=== PATIENT | female | born 1995 | race Caucasian/White ===

== ENCOUNTER → 2017-03-29 | Outpatient (CLI) | payer OTHER ==
--- NOTE | 2017-03-30 07:43 | US ---
EXAMINATION TYPE: US pelvic complete DATE OF EXAM: 03/29/2017 COMPARISON: Previous study dated 03/04/2015. CLINICAL HISTORY: R10.2 Pelvic pain, N80.9 Endometriosis. TECHNIQUE: Transabdominal (TA) Date of LMP: 03/14/2017 EXAM MEASUREMENTS: Uterus: 7.9 x 3.7 x 4.7 cm Endometrial Stripe: 0.6 cm Right Ovary: 3.0 x 2.1 x 1.8 cm Left Ovary: 3.2 x 2.4 x 2.5 cm 1. Uterus: Anteverted wnl 2. Endometrium: wnl 3. Right Ovary: wnl 4. Left Ovary: wnl 5. Bilateral Adnexa: wnl 6. Posterior cul-de-sac: small amount of free fluid IMPRESSION: NORMAL PELVIC ULTRASOUND.
== END | disposition home or self-care (01) ==
LOC: RADUSWWP 15:47
PROVIDERS: ATTEND Family Medicine
DX: R10.2 Pelvic and perineal pain (principal); N80.9 Endometriosis, unspecified
CPT/HCPCS: 76856

== ENCOUNTER → 2017-06-08 | Outpatient (CLI) | payer OTHER ==
--- NOTE | 2017-06-08 10:12 | CT ---
EXAMINATION TYPE: CT abdomen pelvis w con DATE OF EXAM: 06/08/2017 HISTORY: RUQ pain, mid abd and RLQ pain per patient. Right upper quadrant pain per order. CT DLP: 332.7mGycm Automated Exposure Control for Dose Reduction was Utilized. CONTRAST: CT scan of the abdomen and pelvis is performed with IV Contrast, patient injected with 100 mL of Omni paque 300. COMPARISON: CT abdomen pelvis April 30, 2015 FINDINGS: LUNG BASES: No significant abnormality is appreciated. LIVER/GB: No significant abnormality is appreciated. PANCREAS: No significant abnormality is seen. SPLEEN: No significant abnormality is seen. ADRENALS: No significant abnormality is seen. KIDNEYS: No significant abnormality is seen. BOWEL: No suspicious small or large bowel dilatation is seen. Appendix is difficult to visualize wit h certainty as patient has virtually no intra-abdominal fat but there is no convincing evidence of in flammatory change at base of cecum. UTERUS/ADNEXA: Small amount free fluid is seen in pelvic cul-de-sac near axial image 66. There is tub ular shaped air filled structure in the vaginal canal consistent with tampon. LYMPH NODES: No greater than 1cm abdominal or pelvic lymph nodes are appreciated. OSSEOUS STRUCTURES: There is persistent slight dextroconvex scoliotic curvature in the lumbar spine. OTHER: No significant additional abnormality is seen. IMPRESSION: Small amount of free fluid in pelvic cul-de-sac, nonspecific finding otherwise no signifi cant acute finding is seen to account for patient's clinical symptoms.
== END ==
LOC: RADCTMAIN 09:13
PROVIDERS: ATTEND Surgery
DX: R10.11 Right upper quadrant pain (principal)
CPT/HCPCS: 74177; Q9967

== ENCOUNTER → 2017-10-31 | Outpatient (CLI) | payer OTHER ==
--- NOTE | 2017-10-31 08:43 | CT ---
EXAMINATION TYPE: CT chest w con DATE OF EXAM: 10/31/2017 COMPARISON: NONE HISTORY: 22-year-old female with neck mass right side, Viral infection TECHNIQUE: Contiguous axial scanning of the chest after the administration of 100 ml mL of Omnipaque 300. Coronal/sagittal reconstructions performed. CT DLP: 481.40mGycm. Automatic exposure control utilized for a dose reduction. FINDINGS: Heart normal size without pericardial effusion. Aorta normal caliber with conventional arch vessel branching anatomy. Some soft tissue density in the anterior mediastinum most compatible with residual thymic tissue. No thoracic lymphadenopathy. Evaluation of the lungs shows mild to moderate diffuse bronchial wall thickening without consolidatio n or pleural effusion. Visualized upper abdomen shows no gross abnormality. Bones: No osseous destructive process. IMPRESSION: 1. [id number] diffuse bronchial wall thickening. This could represent bronchitis, inflammation from asthma, or atypical pneumonias. 2. Otherwise, no acute pulmonary process.
--- NOTE | 2017-10-31 08:59 | CT ---
EXAMINATION TYPE: CT soft tissue neck w con DATE OF EXAM: 10/31/2017 COMPARISON: NONE HISTORY: Left neck mass TECHNIQUE: Contiguous axial scanning of the performed with IV Contrast, patient injected with 100 ml mL of Omnipaque 300. Delayed images through the kidneys were obtained. Coronal/sagittal reconstructio ns performed. CT DLP: 481.40 mGycm Automated exposure control for dose reduction was used. FINDINGS: Small polyp or mucosal retention cyst posterior right maxillary sinus. Mastoid air cells well pneumat ized. Orbits and globes are intact. Visualized intracranial structures show no gross abnormality. The nasopharynx is clear. Mild bilateral palatine tonsillar hypertrophy. Oropharynx otherwise clear. The epiglottis and prevertebral soft tissues are within normal limits. The glottic and subglottic structures as well as the tracheal column appear clear. Chest reported sep arately. There is a palpable marker present along the lateral aspect of the right upper neck. Just anterior to this, in front of the anterior margin of the sternocleidomastoid, there is a prominent but nonenlarg ed station 2A lymph node measuring 2.7 x 1.0 cm. Additional additional scattered prominent but nonenlarged cervical lymph nodes are demonstrating varun uring up to 9 mm. The thyroid gland, submandibular glands, as well as the bilateral parotid glands appear satisfactory. IMPRESSION: THERE ARE SOME SCATTERED PROMINENT CERVICAL LYMPH NODES. HOWEVER, THESE REMAIN NONENLARGED BY CT SIZE CRITERIA. THE LARGEST IS JUST ANTERIOR TO THE PALPABLE MARKER PLACED ALONG THE LATERAL RIGHT UPPER N ISABEL AND MEASURES 2.7 X 1.0 CM (1.0 CM SHORT AXIS). FINDINGS PROBABLY REACTIVE/POST INFLAMMATORY AND C AN BE FOLLOWED CLINICALLY.
== END | disposition home or self-care (01) ==
LOC: RADCTMAIN 06:45
PROVIDERS: ATTEND Otolaryngology
DX: J98.4 Other disorders of lung (principal); R59.0 Localized enlarged lymph nodes; B34.9 Viral infection, unspecified
CPT/HCPCS: 70491; 71260; Q9967

== ENCOUNTER 2017-11-22 09:10 | Day surgery (SDC) | payer OTHER ==
[2017-11-22 09:20] VITALS: BP 116/59; PULSE 88; RESP 20; TEMP 97.8
--- NOTE | 2017-11-22 11:21 | US ---
EXAMINATION TYPE: US fine needle aspiration of right neck node DATE OF EXAM: 11/22/2017 COMPARISON: CT 10/31/2017 HISTORY: Right neck node, pain. Maximal barrier technique was utilized. After informed consent, skin overlying the lesion was locali zed with ultrasound and the overlying skin prepped and draped. Ultrasound was utilized using sterile technique. Lidocaine was used for local anesthesia. Five passes with a 25-gauge needle were made int o the nodule and aspirated specimen was submitted to cytology. Following the procedure hemostasis ac hieved. No immediate complication. The patient discharged in stable condition. IMPRESSION: STATUS POST ULTRASOUND GUIDED FINE NEEDLE ASPIRATION OF RIGHT NECK NODULE, PATHOLOGY IS P ENDING. THIS PROCEDURE WAS PERFORMED BY THE UNDERSIGNED.
== END 2017-11-22 10:30 | disposition home or self-care (01) ==
LOC: RADPROMAIN 09:10
PROVIDERS: ATTEND Otolaryngology
DX: R22.1 Localized swelling, mass and lump, neck (principal)
CPT/HCPCS: 10022; 76942; 88173; 88305

== ENCOUNTER 2018-05-11 09:07 | Emergency (ER) | payer OTHER ==
[2018-05-11] MEDS ORDERED: MORPHINE SULFATE 2 MG/ML SYRINGE IVP STA ×2 (09:23→10:48)
[2018-05-11] MEDS ORDERED: ONDANSETRON 4 MG/2 ML VIAL IVP STA (09:23)
[2018-05-11] MEDS ORDERED: SODIUM CHLORIDE 0.9% 1,000 ML IV STA (09:23)
--- NOTE | 2018-05-11 09:45 | ED ---
General Adult HPI - General Chief complaint: Abdominal Pain Stated complaint: PELVIC PAIN Source: patient Mode of arrival: ambulatory Limitations: no limitations - History of Present Illness Initial comments: Dictation was produced using [employer] dictation software. please excuse any grammatical, word or spelling errors. Chief Complaint: 22-year-old female witha past medical history presents with lower quadrant abdominal pain 2 days. History of Present Illness:-year-old femalepast medical history presents with lower quadrant abdominal pain 2 days. Patient states she attempted to call her associate professor of education however was instructed to come to the emergency department. She states she has history of ovarian cyst. She does not know what size it was ovarian cyst R. She reports that her pain is to the suprapubic area however worse in the right lower quadrant. Patient has history of cholecystectomy. Denies any fevers. She does complain of nausea however no vomiting. Denies any constitutional symptoms. The ROS documented in this emergency department record has been reviewed and confirmed by me. Those systems with pertinent positive or negative responses have been documented in the HPI. All other systems are other negative and/or noncontributory. - Related Data Home Medications Medication Instructions Recorded Confirmed Ibuprofen [Motrin] 600 mg PO Q8HR PRN 05/11/18 05/11/18 Previous Rx's Medication Instructions Recorded Acetaminophen [Acetaminophen Oral 1,000 mg PO Q8H PRN #20 ml 05/11/18 Soln] Ibuprofen [Motrin] 400 mg PO Q4H PRN #12 tab 05/11/18 Allergies Allergy/AdvReac Type Severity Reaction Status Date / Time Penicillins Allergy Rash/Hives Verified 05/11/18 09:28 hydrocodone bitartrate AdvReac Nausea & Verified 05/11/18 09:28 [From Vicodin] Vomiting Review of Systems ROS Statement: Those systems with pertinent positive or pertinent negative responses have been documented in the HPI. ROS Other: All systems not noted in ROS Statement are negative. Past Medical History Past Medical History: No Reported History Additional Past Medical History / Comment(s): KIDNEY INFECTION, NAUSEA, stomach ulcers History of Any Multi-Drug Resistant Organisms: None Reported Past Surgical History: Cholecystectomy Past Anesthesia/Blood Transfusion Reactions: No Reported Reaction Past Psychological History: Anxiety, Panic Disorder Smoking Status: Never smoker Past Alcohol Use History: Occasional Past Drug Use History: Marijuana - Past Family History Mother Family Medical History: Cancer Additional Family Medical History / Comment(s): LUNG General Exam - General Exam Comments Initial Comments: PHYSICAL EXAM: General Impression: Alert and oriented x3, acute distress secondary to pain HEENT: Normocephalic atraumatic, extra-ocular movements intact, pupils equal and reactive to light bilaterally, mucous membranes moist. Cardiovascular: Heart regular rate and rhythm, S1&S2 audible, no murmurs, rubs or gallops Chest: Lungs clear to auscultation bilaterally, no rhonchi, no wheeze, no rales Abdomen: Bowel sounds present, abdomen soft, tenderness at McBurney's point, positive rebound Musculoskeletal: Pulses present and equal in all extremities, no peripheral edema Motor: Power 5/5 bilaterally, no focal deficits noted Neurological: CN II-XII grossly intact, no focal motor or sensory deficits noted Skin: Intact with no visualized rashes Psych: Normal affect and mood Limitations: no limitations Course Vital Signs 05/11/18 05/11/18 05/11/18 09:12 10:35 11:31 Temperature 98.1 F 97.9 F Pulse Rate 64 75 55 L Respiratory 18 22 16 Rate Blood Pressure 113/70 117/62 91/54 O2 Sat by Pulse 100 99 100 Oximetry Medical Decision Making - Medical Decision Making ED course: 22-year-old female presents with chief complaint of abdominal pain. Vital signs upon arrival are within acceptable limits. Patient is afebrile. Physical examination positive for tenderness at McBurney' s point with rebound tenderness. There is suspicion that patient's symptoms reflect appendicitis. Laboratory evaluation obtained. Metabolic panel is unremarkable. CBC is unremarkable. Cardiac panel is unremarkable. Urinalysis is not consistent with urinary tract infection. Urine is negative. Transvaginal ultrasound was obtained showing small amount of free fluids with a 2.1 cm cyst within the left ovary likely, located cyst. Abdominal CT was obtained to rule out appendicitis. No findings to suggest appendicitis. There is some findings of enteritis. Findings represent ruptured ovarian follicle of the left ovary. There is some secondary findings of enteritis as well. Discussed with patient these findings. She is given prescription for analgesics. Told to follow-up with her associate professor of education upon discharge. - Lab Data Result diagrams: 05/11/18 09:30 05/11/18 09:30 Lab Results 05/11/18 05/11/18 05/11/18 Range/Units 09:30 09:30 09:30 WBC 5.6 (3.8-10.6) k/uL RBC 4.27 (3.80-5.40) m/uL Hgb 12.3 (11.4-16.0) gm/dL Hct 37.5 (34.0-46.0) % MCV 87.7 (80.0-100.0) fL MCH 28.7 (25.0-35.0) pg MCHC 32.8 (31.0-37.0) g/dL RDW 12.4 (11.5-15.5) % Plt Count 258 (150-450) k/uL Neutrophils % 54 % Lymphocytes % 35 % Monocytes % 7 % Eosinophils % 2 % Basophils % 1 % Neutrophils # 3.0 (1.3-7.7) k/uL Lymphocytes # 2.0 (1.0-4.8) k/uL Monocytes # 0.4 (0-1.0) k/uL Eosinophils # 0.1 (0-0.7) k/uL Basophils # 0.0 (0-0.2) k/uL PT (9.0-12.0) sec INR (<1.2) Sodium (137-145) mmol/L Potassium (3.5-5.1) mmol/L Chloride (98-107) mmol/L Carbon Dioxide (22-30) mmol/L Anion Gap mmol/L BUN (7-17) mg/dL Creatinine (0.52-1.04) mg/dL Est GFR (CKD-EPI)AfAm (>60 ml/min/1.73 sqM) Est GFR (CKD-EPI)NonAf (>60 ml/min/1.73 sqM) Glucose (74-99) mg/dL Calcium (8.4-10.2) mg/dL Total Bilirubin (0.2-1.3) mg/dL AST (14-36) U/L ALT (9-52) U/L Alkaline Phosphatase (38-126) U/L Total Protein (6.3-8.2) g/dL Albumin (3.5-5.0) g/dL Lipase (23-300) U/L Urine Color Yellow Urine Appearance Cloudy H (Clear) Urine pH 5.5 (5.0-8.0) Ur Specific [place] 1.023 (1.001-1.035) Urine Protein Trace H (Negative) Urine Glucose (UA) Negative (Negative) Urine Ketones Trace H (Negative) Urine Blood Small H (Negative) Urine Nitrite Negative (Negative) Urine Bilirubin Negative (Negative) Urine Urobilinogen <2.0 (<2.0) mg/dL Ur Leukocyte Esterase Negative (Negative) Urine RBC 6 H (0-5) /hpf Urine WBC 4 (0-5) /hpf Ur Squamous Epith Cells 10 H (0-4) /hpf Calcium Oxalate Crystal Moderate H (None) /hpf Urine Bacteria Occasional H (None) /hpf Urine Mucus Many H (None) /hpf Urine HCG, Qual Not Detected (Not Detectd) 05/11/18 05/11/18 Range/Units 09:30 09:30 WBC (3.8-10.6) k/uL RBC (3.80-5.40) m/uL Hgb (11.4-16.0) gm/dL Hct (34.0-46.0) % MCV (80.0-100.0) fL MCH (25.0-35.0) pg MCHC (31.0-37.0) g/dL RDW (11.5-15.5) % Plt Count (150-450) k/uL Neutrophils % % Lymphocytes % % Monocytes % % Eosinophils % % Basophils % % Neutrophils # (1.3-7.7) k/uL Lymphocytes # (1.0-4.8) k/uL Monocytes # (0-1.0) k/uL Eosinophils # (0-0.7) k/uL Basophils # (0-0.2) k/uL PT 10.6 (9.0-12.0) sec INR 1.1 (<1.2) Sodium 138 (137-145) mmol/L Potassium 3.9 (3.5-5.1) mmol/L Chloride 107 (98-107) mmol/L Carbon Dioxide 22 (22-30) mmol/L Anion Gap 9 mmol/L BUN 12 (7-17) mg/dL Creatinine 0.54 (0.52-1.04) mg/dL Est GFR (CKD-EPI)AfAm >90 (>60 ml/min/1.73 sqM) Est GFR (CKD-EPI)NonAf >90 (>60 ml/min/1.73 sqM) Glucose 90 (74-99) mg/dL Calcium 9.5 (8.4-10.2) mg/dL Total Bilirubin 1.5 H (0.2-1.3) mg/dL AST 15 (14-36) U/L ALT 22 (9-52) U/L Alkaline Phosphatase 46 (38-126) U/L Total Protein 7.3 (6.3-8.2) g/dL Albumin 4.7 (3.5-5.0) g/dL Lipase 71 (23-300) U/L Urine Color Urine Appearance (Clear) Urine pH (5.0-8.0) Ur Specific [place] (1.001-1.035) Urine Protein (Negative) Urine Glucose (UA) (Negative) Urine Ketones (Negative) Urine Blood (Negative) Urine Nitrite (Negative) Urine Bilirubin (Negative) Urine Urobilinogen (<2.0) mg/dL Ur Leukocyte Esterase (Negative) Urine RBC (0-5) /hpf Urine WBC (0-5) /hpf Ur Squamous Epith Cells (0-4) /hpf Calcium Oxalate Crystal (None) /hpf Urine Bacteria (None) /hpf Urine Mucus (None) /hpf Urine HCG, Qual (Not Detectd) Disposition Clinical Impression: Ruptured ovarian cyst Disposition: HOME SELF-CARE Condition: Fair Instructions: Ruptured Ovarian Cyst (ED) Prescriptions: Acetaminophen [Acetaminophen Oral Soln] 1,000 mg PO Q8H PRN #20 ml PRN Reason: Pain Ibuprofen [Motrin] 400 mg PO Q4H PRN #12 tab PRN Reason: Pain Is patient prescribed a controlled substance at d/c from ED?: No Referrals: Spencer Jackson DO [Primary Care Provider] - 1-2 days Time of Disposition: 12:13
[2018-05-11 09:49] LABS: Basophils % (A) 1 %; Eosinophils # (A) 0.1 k/uL (0-0.7); Eosinophils % (A) 2 %; HCT 37.5 % (34.0-46.0); HGB 12.3 gm/dL (11.4-16.0); Lymphocytes % (A) 35 %; MCH 28.7 pg (25.0-35.0); MCHC 32.8 g/dL (31.0-37.0); MCV 87.7 fL (80.0-100.0); Mean Platelet Volume 6.6; Monocytes # (A) 0.4 k/uL (0-1.0); Monocytes % (A) 7 %; Neutrophils % (A) 54 %; Platelet Count 258 k/uL (150-450); RBC 4.27 m/uL (3.80-5.40); RDW 12.4 % (11.5-15.5); WBC 5.6 k/uL (3.8-10.6)
[2018-05-11 09:54] LABS: Appearance,Urine Cloudy (Clear); Bacteria,Urine Occasional /hpf; Bilirubin,Urine Negative (Negative); Blood,Urine Small (Negative); Calcium Oxalate Crystals,Urine Moderate /hpf; Color,Urine Yellow; Glucose,Urine (UA) Negative (Negative); Ketones,Urine Trace (Negative); Leukocyte Esterase,Urine Negative (Negative); Mucus,Urine Many /hpf; Nitrite,Urine Negative (Negative); PH, Urine 5.5 (5.0-8.0); Protein,Urine Trace (Negative); RBC,Urine 6 /hpf (0-5); Specific Gravity,Urine 1.023 (1.001-1.035); Squamous Epithelial Cell,Urine 10 /hpf (0-4); Urobilinogen,Urine <2.0 mg/dL (<2.0); WBC,Urine 4 /hpf (0-5)
[2018-05-11 09:58] LABS: INR 1.1 (<1.2); Prothrombin Time 10.6 sec (9.0-12.0)
[2018-05-11 10:00] LABS: ALT 22 U/L (9-52); AST 15 U/L (14-36); Albumin 4.7 g/dL (3.5-5.0); Alkaline Phosphatase 46 U/L (38-126); Anion Gap 9 mmol/L; Blood Urea Nitrogen 12 mg/dL (7-17); Calcium 9.5 mg/dL (8.4-10.2); Carbon Dioxide 22 mmol/L (22-30); Chloride 107 mmol/L (98-107); Glucose 90 mg/dL (74-99); Lipase 71 U/L (23-300); Potassium 3.9 mmol/L (3.5-5.1); Sodium 138 mmol/L (137-145); Total Bilirubin 1.5 mg/dL (0.2-1.3); Total Protein 7.3 g/dL (6.3-8.2)
[2018-05-11 10:39] VITALS: TEMP 97.9
[2018-05-11] MEDS ORDERED: METOCLOPRAMIDE 5 MG/ML 2 ML VIAL IVP STA (10:48)
--- NOTE | 2018-05-11 11:29 | US ---
EXAMINATION TYPE: US transvaginal DATE OF EXAM: 05/11/2018 COMPARISON: US & CT CLINICAL HISTORY: Pain. Pt states pelvic pain x 2 days TECHNIQUE: Transvaginal (TV). Date of LMP: 04/22/2018 EXAM MEASUREMENTS: Uterus: 7.7 x 3.9 x 5.0 cm Endometrial Stripe: 1.0 cm Right Ovary: 3.2 x 2.1 x 3.5 cm Left Ovary: 3.6 x 2.1 x 2.3 cm 1. Uterus: Anteverted wnl 2. Endometrium: wnl 3. Right Ovary: wnl 4. Left Ovary: Small, probable resolving hemorrhagic cyst 2.1 x 1.5 cm Spectral, color and waveform doppler imaging shows good arterial and venous flow within the ovaries ; there is no evidence for ovarian torsion. 5. Bilateral Adnexa: wnl 6. Posterior cul-de-sac: small amount of free fluid IMPRESSION: 1. Small amount of free fluid in the pelvis with a 2.1 cm cyst within the left ovary. Finding may be on the basis of a complicated cyst. Correlate clinically with beta hCG to exclude possibility of preg noe or ectopic .
--- NOTE | 2018-05-11 12:03 | CT ---
EXAMINATION TYPE: CT abdomen pelvis w con DATE OF EXAM: 05/11/2018 COMPARISON: 06/08/2017 HISTORY: 22 year-old female with abdominal pain TECHNIQUE: Contiguous axial scanning of the abdomen and pelvis following administration of 100 ml Iso edgard 300 IV contrast. Delayed images through the kidneys and coronal/sagittal reconstructions perform ed. CT DLP: 693 mGycm Automated exposure control for dose reduction was used. FINDINGS: Heart normal size without pericardial effusion. Lung bases clear without pleural effusion. Gallbladder surgically absent. Mild periportal edema is noted possibly due to hydrated status. Portal venous system is patent. Mild mildly dilated at 8 mm, slightly increased from 6 mm, previously, possibly due to postcholecyste ctomy status. This can be correlated with alkaline phosphatase and bilirubin levels. Adrenal glands, kidneys with extrarenal pelvis on the left, spleen, and pancreas show no gross abnorm al. No dilated small bowel, free fluid, or free air. Normal appendix. Some prominent fluid-filled small bowel loops in the mid and lower abdomen mild stool in the right he micolon. No pericolonic inflammatory change seen. No mesenteric or retroperitoneal lymphadenopathy seen. Bladder urine distended. Pelvic phleboliths. Heterogeneous enhancement of the uterus likely physiolog ic changes. Prominent irregular change in both ovaries with a peripherally enhancing collapsing cysti c lesion on the left measuring 1.7 cm probably a recent ruptured follicle. Moderate cul-de-sac free f luid likely physiologic. Bones: No osseous destructive process. IMPRESSION: 1. HETEROGENEOUS ENHANCEMENT OF THE UTERUS AND MODERATE CUL-DE-SAC FREE FLUID LIKELY PHYSIOLOGIC. 2. PERIPHERALLY ENHANCING COLLAPSING CYSTIC LESION MEASURING 1.7 CM IN THE LEFT OVARY LIKELY A RECENT LY RUPTURED FOLLICLE. 3. NORMAL APPENDIX. SOME PROMINENT FLUID-FILLED SMALL BOWEL LOOPS COULD REPRESENT ENTERITIS. 4. MILD DILATATION OF THE BILE DUCT SLIGHTLY INCREASED FROM 06/08/2017 AT 8 MM COULD BE SECONDARY TO P OSTCHOLECYSTECTOMY STATUS. CORRELATE WITH ALKALINE PHOSPHATASE AND BILIRUBIN LEVELS.
[2018-05-11 12:33] VITALS: BP 97/50; PULSE 61; RESP 18
== END 2018-05-11 12:33 | disposition home or self-care (01) ==
LOC: EC 09:07
DX: N83.202 Unspecified ovarian cyst, left side (principal); Z90.49 Acquired absence of other specified parts of digestive tract; Z87.19 Personal history of other diseases of the digestive system; Z88.0 Allergy status to penicillin; Z88.5 Allergy status to narcotic agent
CPT/HCPCS: 36415; 80053; 83690; 85025; 85610; 81001; 81025; 87086; 93975; 76830; 74177; 99284; 96374; 96375 ×2; 96376; 96361 ×2; J2765; J2405; J2270; Q9967

== ENCOUNTER 2018-11-14 17:09 | Emergency (ER) | payer OTHER ==
[2018-11-14] MEDS ORDERED: SODIUM CHLORIDE 0.9% 1,000 ML IV ONE (19:20)
[2018-11-14 20:24] LABS: Basophils # (A) 0.1 k/uL (0-0.2); Basophils % (A) 1 %; Eosinophils # (A) 0.1 k/uL (0-0.7); Eosinophils % (A) 1 %; HCT 38.4 % (34.0-46.0); HGB 12.6 gm/dL (11.4-16.0); Lymphocytes # (A) 2.3 k/uL (1.0-4.8); Lymphocytes % (A) 26 %; MCH 29.3 pg (25.0-35.0); MCHC 32.7 g/dL (31.0-37.0); MCV 89.6 fL (80.0-100.0); Mean Platelet Volume 6.5; Monocytes # (A) 0.4 k/uL (0-1.0); Monocytes % (A) 4 %; Neutrophils # (A) 5.9 k/uL (1.3-7.7); Neutrophils % (A) 67 %; Platelet Count 298 k/uL (150-450); RBC 4.29 m/uL (3.80-5.40); RDW 12.5 % (11.5-15.5); WBC 8.9 k/uL (3.8-10.6)
[2018-11-14 20:39] LABS: ALT 18 U/L (9-52); AST 16 U/L (14-36); Albumin 4.4 g/dL (3.5-5.0); Alkaline Phosphatase 41 U/L (38-126); Anion Gap 8 mmol/L; Blood Urea Nitrogen 12 mg/dL (7-17); Calcium 9.6 mg/dL (8.4-10.2); Carbon Dioxide 25 mmol/L (22-30); Chloride 105 mmol/L (98-107); Glucose 87 mg/dL (74-99); Potassium 3.9 mmol/L (3.5-5.1); Sodium 138 mmol/L (137-145); Total Bilirubin 0.7 mg/dL (0.2-1.3); Total Protein 7.3 g/dL (6.3-8.2)
[2018-11-14 20:55] LABS: HCG,Quantitative Serum 480.4 mIU/mL
--- NOTE | 2018-11-14 21:08 | ED ---
Abdominal Pain HPI - General Source: patient Mode of arrival: ambulatory Limitations: no limitations <Jocelyn Quiroga - Last Filed: 11/15/18 01:11> <Esther Stewart - Last Filed: 11/15/18 04:34> - General Chief Complaint: Abdominal Pain Stated Complaint: post /abdominal pain & vag bleeding - History of Present Illness Initial Comments: 23-year-old female presenting today for chief complaint of increased lower abdominal pain status post D&C last Tuesday, dx 7 weeks with intrauterine . Patient states that she had a D&C performed at a clinic in [place]. She states she was told after that she would expect some abdominal cramping and brownish discharge. She states her symptoms were mild cramping at first and her pain improved a few days following the D&C. Patient states Tuesday because she began experiencing increasing pain, she states it persisted for the past 2 days the patient became concerned. She states she called a local [employer] office as told by the company secretary to f/u at the clinic she had the procedure performed, pt states this is not possible. She states she has had chills, denies fever. Patient denies nausea or vomiting. Patient states that she does have increasing pain with ambulation. Patient states the pain does radiate towards her back. Patient states the pain at times is 10/10. Remaining ROS (-), patient denies any recent shortness of breath , chest pain, b numbness or tingling, dysuria or hematuria, constipation or diarrhea, headaches or visual changes, or any other complaints. (Jocelyn Quiroga) - Related Data Home Medications Medication Instructions Recorded Confirmed Ibuprofen [Motrin] 800 mg PO TID PRN 11/14/18 11/14/18 Previous Rx's Medication Instructions Recorded Ibuprofen 800 mg PO Q8H PRN 7 Days #21 tablet 11/14/18 Allergies Allergy/AdvReac Type Severity Reaction Status Date / Time Penicillins Allergy Rash/Hives Verified 11/14/18 19:59 hydrocodone bitartrate AdvReac Nausea & Verified 11/14/18 19:59 [From Vicodin] Vomiting Review of Systems ROS Other: All systems not noted in ROS Statement are negative. <Jocelyn Quiroga - Last Filed: 11/15/18 01:11> ROS Other: All systems not noted in ROS Statement are negative. <sEther Stewart P - Last Filed: 11/15/18 04:34> ROS Statement: Those systems with pertinent positive or pertinent negative responses have been documented in the HPI. Past Medical History Past Medical History: No Reported History Additional Past Medical History / Comment(s): KIDNEY INFECTION, NAUSEA, stomach ulcers History of Any Multi-Drug Resistant Organisms: None Reported Past Surgical History: Cholecystectomy Additional Past Surgical History / Comment(s): Past Anesthesia/Blood Transfusion Reactions: No Reported Reaction Past Psychological History: Anxiety, Panic Disorder Smoking Status: Current some day smoker Past Alcohol Use History: Occasional Past Drug Use History: Marijuana - Past Family History Mother Family Medical History: Cancer Additional Family Medical History / Comment(s): LUNG <Jocelyn Quiroga - Last Filed: 11/15/18 01:11> General Exam Limitations: no limitations <Jocelyn Quiroga L - Last Filed: 11/15/18 01:11> <Eshter Stewart P - Last Filed: 11/15/18 04:34> - General Exam Comments Initial Comments: General: The patient is awake and alert, in no distress, and does not appear acutely ill. Eye: Pupils are equal, round and reactive to light, extra-ocular movements are intact. No nystagmus. There is normal conjunctiva bilaterally. No signs of icterus. Ears, nose, mouth and throat: There are moist mucous membranes and no oral lesions. Neck: The neck is supple, there is no tenderness or JVD. Cardiovascular: There is a regular rate and rhythm. No murmur, rub or gallop is appreciated. Respiratory: Lungs are clear to auscultation, respirations are non-labored, breath sounds are equal. No wheezes, stridor, rales, or rhonchi. Gastrointestinal: No noted diaphoresis, jaundice, pallor, protecting postures or squirming. Symmetrical pigmentation of abdomen without signs of inflammation. Umbilicus mildline, inverted without swelling. No dilated veins. Abdomen contour scaphoid , no noted abdominal distention. No visible masses. No peristalsis, aortic pulsations, or ventral hernia. Bowel sounds audible in all 4 quadrants, unremarkable. Pt diffusely tender to lower abdomen palpation. This includes the pelvic region bilaterally. Patient does have mild guarding. Liver edge, not palpable. Spleen edge, right and left kidney not palpable. Superior bladder margin non-tender. Special Testing: Negative Glasco, Rovsing, McBurney, Preston, cutaneous hyperesthesia. Iliopsoas and obturator tests negative bilaterally. Negative Heel Jar test. No CVA tenderness. Digital rectal exam deferred. Negative mooney turners or cullens sign Musculoskeletal: Normal ROM, no tenderness. Strength 5/5. Sensation intact. Pulses equal bilaterally 2+. Neurological: A&O x 3. CN II-XII intact, There are no obvious motor or sensory deficits. Coordination appears grossly intact. Speech is normal. Skin: Skin is warm and dry and no rashes or lesions are noted. Psychiatric: Cooperative, appropriate mood & affect, normal judgment. Pelvic Exam: Os appears open, there is small amount of brown discharge/clots. No bright red blood, no heavy bleeding, no discharge. No vaginal lacerations. Adnexal tenderness b/l. No cervical motion tenderness. Vaginal mucosa is pink well rugated. External genitalia revealed no lesions, normal female hair pattern. (Jocelyn Quiroga) Vital Signs 11/14/18 11/14/18 11/14/18 17:26 21:45 23:41 Temperature 98.0 F 98.2 F Pulse Rate 76 80 56 L Respiratory 18 18 16 Rate Blood Pressure 123/67 110/61 121/56 O2 Sat by Pulse 100 98 99 Oximetry Medical Decision Making - Lab Data Result diagrams: 11/14/18 19:59 11/14/18 19:59 <Jocelyn Quiroga - Last Filed: 11/15/18 01:11> - Lab Data Result diagrams: 11/14/18 19:59 11/14/18 19:59 <Esther Stewart - Last Filed: 11/15/18 04:34> - Medical Decision Making 23-year-old with history of recent D&C presenting for abdominal pain. Pelvic ultrasound revealed mild to moderate amount of fluid in the posterior cul-de- sac. CT redemonstrated findings of pelvic ultrasound. No free air. Patient was tender on examination. Pelvic exam revealed open os, brown blood, with small clots no heavy bleeding. Mild adnexal tenderness. Patient evaluated by attending provider Dr. Stewart who contacted on-call [employer]. Attending provider discussed examination findings as well as imaging studies. Patient's laboratory studies as well as vital signs remain within acceptable limits. Patient is afebrile, no leukocytosis on laboratory studies. Patient given medication for pain, states symptoms improved. Dr. Samayoa recommended discharge with NSAIDs and close follow-up in office. Patient is agreeable to plan and discharged. Appearing well vital signs remained stable. Patient given 1 L IV fluids during stay. (Jocelyn Quiroga) I personally saw and examined the patient. I reviewed and agree with the mid- level provider findings including all diagnostic interpretations and treatment plans as written. I reviewed the patient's ultrasound as well as computed tomography scan and labs. I discussed patient care with OB on-call Dr. Samayoa who recommends outpatient follow-up for continued trending of the beta. He suspects patient's pain and discomfort is due to ruptured corpus luteal cyst. He advises patient to call his office tomorrow to establish follow -up. (Esther Stewart) - Lab Data Lab Results 11/14/18 11/14/18 Range/Units 19:59 19:59 WBC 8.9 (3.8-10.6) k/uL RBC 4.29 (3.80-5.40) m/uL Hgb 12.6 (11.4-16.0) gm/dL Hct 38.4 (34.0-46.0) % MCV 89.6 (80.0-100.0) fL MCH 29.3 (25.0-35.0) pg MCHC 32.7 (31.0-37.0) g/dL RDW 12.5 (11.5-15.5) % Plt Count 298 (150-450) k/uL Neutrophils % 67 % Lymphocytes % 26 % Monocytes % 4 % Eosinophils % 1 % Basophils % 1 % Neutrophils # 5.9 (1.3-7.7) k/uL Lymphocytes # 2.3 (1.0-4.8) k/uL Monocytes # 0.4 (0-1.0) k/uL Eosinophils # 0.1 (0-0.7) k/uL Basophils # 0.1 (0-0.2) k/uL Sodium 138 (137-145) mmol/L Potassium 3.9 (3.5-5.1) mmol/L Chloride 105 (98-107) mmol/L Carbon Dioxide 25 (22-30) mmol/L Anion Gap 8 mmol/L BUN 12 (7-17) mg/dL Creatinine 0.44 L (0.52-1.04) mg/dL Est GFR (CKD-EPI)AfAm >90 (>60 ml/min/1.73 sqM) Est GFR (CKD-EPI)NonAf >90 (>60 ml/min/1.73 sqM) Glucose 87 (74-99) mg/dL Calcium 9.6 (8.4-10.2) mg/dL Total Bilirubin 0.7 (0.2-1.3) mg/dL AST 16 (14-36) U/L ALT 18 (9-52) U/L Alkaline Phosphatase 41 (38-126) U/L Total Protein 7.3 (6.3-8.2) g/dL Albumin 4.4 (3.5-5.0) g/dL HCG, Quant 480.4 mIU/mL Disposition Is patient prescribed a controlled substance at d/c from ED?: No Time of Disposition: 23:18 <Jocelyn Quiroga L - Last Filed: 11/15/18 01:11> <Esther Stewart P - Last Filed: 11/15/18 04:34> Clinical Impression: Pelvic pain Disposition: HOME SELF-CARE Condition: Good Instructions (If sedation given, give patient instructions): Dilation and Curettage (DC) Additional Instructions: Please use medication as discussed. Please follow-up with Dr. Samayoa in the next 24 hours. Please return to emergency room if the symptoms increase or worsen or for any other concerns. Prescriptions: Ibuprofen 800 mg PO Q8H PRN 7 Days #21 tablet PRN Reason: Pain Referrals: Spencer Jackson DO [Primary Care Provider] - 1-2 days Jairo Samayoa MD [STAFF PHYSICIAN] - 1-2 days
[2018-11-14] MEDS ORDERED: ONDANSETRON 4 MG/2 ML VIAL IVP STA (21:13)
[2018-11-14] MEDS ORDERED: MORPHINE SULFATE 4 MG/ML SYRINGE IVP STA (21:13)
--- NOTE | 2018-11-14 21:42 | US ---
EXAMINATION TYPE: US transvaginal DATE OF EXAM: 11/14/2018 COMPARISON: NONE CLINICAL HISTORY: pain. Post x 1 week pain and bleeding. TECHNIQUE: Transvaginal (TV). EXAM MEASUREMENTS: Uterus: 7.9 x 3.5 x 5.3 cm Endometrial Stripe: 0.5 cm Right Ovary: 2.5 x 1.6 x 1.3 cm Left Ovary: 2.5 x 1.1 x 1.4 cm 1. Uterus: Anteverted. Endometrium is negative for retained products. 2. Right Ovary: wnl 3. Left Ovary: wnl Spectral, color and waveform doppler imaging shows good arterial and venous flow within the ovaries ; there is no evidence for ovarian torsion. 4. Bilateral Adnexa: wnl 5. Posterior cul-de-sac: Mild-moderate volume of anechoic fluid noted. IMPRESSION: MILD-MODERATE VOLUME OF ANECHOIC CUL-DE-SAC FLUID.
--- NOTE | 2018-11-14 22:05 | CT ---
EXAMINATION TYPE: CT abdomen pelvis w con DATE OF EXAM: 11/14/2018 COMPARISON: Ultrasound earlier this evening. HISTORY: Abdominal pain and bleeding post x6 days CT DLP: 476.5 mGycm Automated exposure control for dose reduction was used. TECHNIQUE: Helical acquisition of images was performed from the lung bases through the pelvis. CONTRAST: Performed without Oral Contrast and with IV Contrast, patient injected with 100 mL of Isovu e 300. FINDINGS: LUNG BASES: No significant abnormality is appreciated. LIVER/GB: No significant abnormality is appreciated. PANCREAS: No significant abnormality is seen. SPLEEN: No significant abnormality is seen. ADRENALS: No significant abnormality is seen. KIDNEYS: No significant abnormality is seen. ABDOMINAL PERITONEAL CAVITY: No pneumoperitoneum or peritoneal fluid within the abdomen. RETROPERITONEAL ADENOPATHY: None visualized REPRODUCTIVE ORGANS: The uterus is anteverted and there is nonspecific bilateral adnexal indistinctne ss. [id number] volume of cul-de-sac fluid is noted URINARY BLADDER: No significant abnormality is seen. PELVIC ADENOPATHY: None visualized. OSSEOUS STRUCTURES: No significant abnormality is seen. BOWEL: No significant abnormality is seen. Specifically, the pericecal region is negative as seen. OTHER: No acute vascular findings. IMPRESSION: CUL-DE-SAC FLUID WITH BILATERAL ADNEXAL INDISTINCTNESS.
[2018-11-14 23:42] VITALS: BP 121/56; PULSE 56; RESP 16; TEMP 98.2
== END 2018-11-14 23:43 | disposition home or self-care (01) ==
LOC: EC 17:09
DX: R10.2 Pelvic and perineal pain (principal); F17.200 Nicotine dependence, unspecified, uncomplicated; Z88.0 Allergy status to penicillin; Z88.5 Allergy status to narcotic agent; Z90.49 Acquired absence of other specified parts of digestive tract
CPT/HCPCS: 99284; 96374; 96375; 96361; 36415; 80053; 85025; 84702; 93975; 76830; 74177; J2270; J2405; Q9967

== ENCOUNTER → 2018-11-21 | Outpatient (CLI) | payer OTHER | END | disposition home or self-care (01) | LOC: LABWHC1 11:08 | PROVIDERS: ATTEND Obstetrics & Gynecology | DX: O03.4 Incomplete spontaneous abortion without complication (principal) | CPT/HCPCS: 36415; 84702; 86850; 86900; 86901 ==

== ENCOUNTER 2019-05-22 01:40 | Outpatient (CLI) | payer OTHER ==
[2019-05-22] MEDS ORDERED: ONDANSETRON 4 MG/2 ML VIAL IVP STA (02:06)
[2019-05-22 02:10] LABS: Appearance,Urine Clear (Clear); Bilirubin,Urine Negative (Negative); Blood,Urine Negative (Negative); Color,Urine Light Yellow; Glucose,Urine (UA) Negative (Negative); Ketones,Urine Negative (Negative); Leukocyte Esterase,Urine Negative (Negative); Nitrite,Urine Negative (Negative); Protein,Urine Negative (Negative); Specific Gravity,Urine 1.011 (1.001-1.035); Urobilinogen,Urine <2.0 mg/dL (<2.0)
[2019-05-22] MEDS ORDERED: DEXTROSE 5%-LACTATED RINGERS 1,000 ML IV SCH (02:15)
[2019-05-22 02:20] LABS: Glucose,Whole Blood 92 mg/dL (75-99)
[2019-05-22 02:37] LABS: Basophils % (A) 0 %; Eosinophils # (A) 0.1 k/uL (0-0.7); Eosinophils % (A) 1 %; HCT 29.7 % (34.0-46.0); HGB 9.6 gm/dL (11.4-16.0); Lymphocytes # (A) 2.4 k/uL (1.0-4.8); Lymphocytes % (A) 27 %; MCH 28.1 pg (25.0-35.0); MCHC 32.2 g/dL (31.0-37.0); MCV 87.2 fL (80.0-100.0); Mean Platelet Volume 6.8; Monocytes # (A) 0.6 k/uL (0-1.0); Monocytes % (A) 6 %; Neutrophils # (A) 5.6 k/uL (1.3-7.7); Neutrophils % (A) 64 %; Platelet Count 276 k/uL (150-450); RDW 12.8 % (11.5-15.5); WBC 8.8 k/uL (3.8-10.6)
[2019-05-22 02:48] LABS: Potassium 3.5 mmol/L (3.5-5.1)
--- NOTE | 2019-06-16 10:57 | P.MSEPDOC ---
Presenting Problems - Arrival Data Date of Arrival on Unit: 05/22/19 Time of Arrival on Unit: 01:44 Mode of Transport: Ambulatory Physician Notification (Pre) - Physician Notified Physician Notified Date: 05/22/19 Physician Notified Time: 02:27 - Notification Comment Comment: Dr. Suarez at bedside to see pt Disposition - Disposition OB Disposition: Physician follow up in office, Discharge to home Discharge Date: 05/22/19 Discharge Time: 02:46 I agree with the RN Medical Screening Exam: Yes Risk & Benefit of care provided described in d/c instruction: Yes Diagnosis: VOMITING OF , UNSPECIFIED
== END 2019-05-22 02:46 | disposition home or self-care (01) ==
LOC: FBPOP 01:40
PROVIDERS: ATTEND Obstetrics & Gynecology
DX: O21.9 Vomiting of pregnancy, unspecified (principal); Z3A.00 Weeks of gestation of pregnancy not specified
CPT/HCPCS: 99214; 96360; 96372; 80051; 85025; 81003; J2405; 96366

== ENCOUNTER 2019-08-24 12:47 | Observation (INO) | payer OTHER ==
[2019-08-24] MEDS ORDERED: ACETAMINOPHEN IV (For NPO) 1,000 MG in EMPTY BAG 1 BAG IVPB STA (13:16)
[2019-08-24] MEDS: LACTATED RINGERS 1,000 ML IV SCH ×4 (13:39→17:35)
[2019-08-24 13:42] LABS: Appearance,Urine Cloudy (Clear); Bacteria,Urine Occasional /hpf; Bilirubin,Urine Negative (Negative); Blood,Urine Negative (Negative); Color,Urine Yellow; Glucose,Urine (UA) Negative (Negative); Ketones,Urine Negative (Negative); Leukocyte Esterase,Urine Large (Negative); Mucus,Urine Few /hpf; Nitrite,Urine Negative (Negative); PH, Urine 6.5 (5.0-8.0); Protein,Urine Trace (Negative); Specific Gravity,Urine 1.016 (1.001-1.035); Squamous Epithelial Cell,Urine 8 /hpf (0-4); Urobilinogen,Urine <2.0 mg/dL (<2.0); WBC,Urine 3 /hpf (0-5)
[2019-08-24 13:47] LABS: Basophils % (A) 0 %; Eosinophils # (A) 0.1 k/uL (0-0.7); Eosinophils % (A) 1 %; HCT 30.1 % (34.0-46.0); HGB 10.1 gm/dL (11.4-16.0); Lymphocytes # (A) 1.7 k/uL (1.0-4.8); Lymphocytes % (A) 21 %; MCH 29.2 pg (25.0-35.0); MCHC 33.4 g/dL (31.0-37.0); MCV 87.4 fL (80.0-100.0); Mean Platelet Volume 7.3; Monocytes # (A) 0.5 k/uL (0-1.0); Monocytes % (A) 6 %; Neutrophils # (A) 5.7 k/uL (1.3-7.7); Neutrophils % (A) 71 %; Platelet Count 249 k/uL (150-450); RBC 3.44 m/uL (3.80-5.40); RDW 12.6 % (11.5-15.5); WBC 8.1 k/uL (3.8-10.6)
[2019-08-24 14:04] LABS: ALT 10 U/L (9-52); AST 16 U/L (14-36); African American GFR (CKD) >90 (>60 ml/min/1.73 sqM); Albumin 3.2 g/dL (3.5-5.0); Alkaline Phosphatase 108 U/L (38-126); Anion Gap 6 mmol/L; Blood Urea Nitrogen 6 mg/dL (7-17); Carbon Dioxide 22 mmol/L (22-30); Chloride 108 mmol/L (98-107); Glucose 91 mg/dL (74-99); Non-African American GFR(CKD) >90 (>60 ml/min/1.73 sqM); Potassium 3.4 mmol/L (3.5-5.1); Sodium 136 mmol/L (137-145); Total Bilirubin 1.2 mg/dL (0.2-1.3); Total Protein 6.2 g/dL (6.3-8.2)
--- NOTE | 2019-08-24 14:28 | P.HPOB ---
History of Present Illness H&P Date: 08/24/19 Chief Complaint: IUP @ 34 3/7, RLQ pain This is a 24yo at 34-5/7 weeks, EDC 10/02 L=7 week US that presented to labor and delivery with complaints of right lower quadrant pain. Patient states she hasn't been sleeping well since Tuesday, and this pain is been in creasing. She notes good movement denies contractions. She denies loss of fluid she denies vaginal/ bleeding . Patient has been receiving routine care with Dr. Samayoa. Review of Systems Constitutional: Reports chills, Reports fatigue, Denies fever Ears, nose, mouth and throat: Denies headache Cardiovascular: Denies leg edema Respiratory: Denies dyspnea Gastrointestinal: Denies constipation, Denies diarrhea, Denies nausea, Denies vomiting Genitourinary: Reports Past Medical History Past Medical History: No Reported History Additional Past Medical History / Comment(s): KIDNEY INFECTION, NAUSEA, stomach ulcers History of Any Multi-Drug Resistant Organisms: None Reported Past Surgical History: Cholecystectomy Additional Past Surgical History / Comment(s): Past Anesthesia/Blood Transfusion Reactions: No Reported Reaction Smoking Status: Never smoker - Past Family History Mother Family Medical History: Cancer Additional Family Medical History / Comment(s): LUNG Medications and Allergies Home Medications Medication Instructions Recorded Confirmed Type Iron 18 mg PO DAILY 08/24/19 08/24/19 History Pnv No.95/Ferrous Fum/Folic AC 1 each PO DAILY 08/24/19 08/24/19 History [ Multivitamin Tablet] Allergies Allergy/AdvReac Type Severity Reaction Status Date / Time acetaminophen Allergy Rash/Hives Verified 08/24/19 13:26 Penicillins Allergy Rash/Hives Verified 08/24/19 13:09 hydrocodone bitartrate AdvReac Nausea & Verified 08/24/19 13:09 [From Vicodin] Vomiting Exam Osteopathic Statement: *. No significant issues noted on an osteopathic structural exam other than those noted in the History and Physical/Consult. Intake and Output 08/23/19 08/24/19 08/24/19 22:59 06:59 14:59 Other: Weight 58.06 kg Targeted physical exam is performed and the state in general this is a well- nourished well-developed female that appears ill, her breathing is noted to be nonlabored her heart has regular rate and rhythm her abdomen is gravid and appropriate for gestational age, heart tones are noted to be reassuring for gestational age and no contractions are noted. Cervical exam is deferred at this time. Results Result Diagrams: 08/24/19 13:36 08/24/19 13:36 Abnormal Lab Results - Last 24 Hours (Table) 08/24/19 08/24/19 08/24/19 Range/Units 12:57 13:36 13:36 RBC 3.44 L (3.80-5.40) m/uL Hgb 10.1 L (11.4-16.0) gm/dL Hct 30.1 L (34.0-46.0) % Sodium 136 L (137-145) mmol/L Potassium 3.4 L (3.5-5.1) mmol/L Chloride 108 H (98-107) mmol/L BUN 6 L (7-17) mg/dL Creatinine 0.38 L (0.52-1.04) mg/dL Total Protein 6.2 L (6.3-8.2) g/dL Albumin 3.2 L (3.5-5.0) g/dL Urine Appearance Cloudy H (Clear) Urine Protein Trace H (Negative) Ur Leukocyte Esterase Large H (Negative) Ur Squamous Epith Cells 8 H (0-4) /hpf Urine Bacteria Occasional H (None) /hpf Urine Mucus Few H (None) /hpf Assessment and Plan (1) 34 weeks gestation of Current Visit: Yes Status: Acute Code(s): Z3A.34 - 34 WEEKS GESTATION OF SNOMED Code(s): 53741578 (2) LLQ abdominal pain Current Visit: Yes Status: Acute Code(s): R10.32 - LEFT LOWER QUADRANT PAIN SNOMED Code(s): 237024372 (3) UTI (urinary tract infection) Current Visit: No Status: Acute Code(s): N39.0 - URINARY TRACT INFECTION, SITE NOT SPECIFIED SNOMED Code(s): 84648526 Plan: Will observe patient over this evening. We will start IV antibiotics given her flank pain and history of pyelonephritis. IV fluids are initiated as well. Plan is discussed with the patient we will repeat labs in the morning and reassess clinical symptoms. Plan NST every shift
[2019-08-24 15:47] VITALS: BMI 24.1
[2019-08-25] MEDS: LACTATED RINGERS 1,000 ML IV SCH (06:47)
[2019-08-25 06:51] LABS: HCT 26.5 % (34.0-46.0); HGB 8.9 gm/dL (11.4-16.0); MCH 29.6 pg (25.0-35.0); MCHC 33.7 g/dL (31.0-37.0); MCV 87.9 fL (80.0-100.0); Mean Platelet Volume 7.5; Platelet Count 216 k/uL (150-450); RBC 3.01 m/uL (3.80-5.40); RDW 12.4 % (11.5-15.5); WBC 7.5 k/uL (3.8-10.6)
[2019-08-25 07:49] VITALS: BP 103/64; PULSE 54; RESP 16; TEMP 97.9
--- NOTE | 2019-08-25 09:27 | P.DS ---
Providers Date of admission: 08/24/19 14:25 Expected date of discharge: 08/25/19 Attending physician: Tisha Schultz Primary care physician: Stated None - Discharge Diagnosis(es) (1) 34 weeks gestation of Current Visit: Yes Status: Acute (2) LLQ abdominal pain Current Visit: Yes Status: Acute (3) UTI (urinary tract infection) Current Visit: No Status: Acute Hospital Course: This is a pleasant 24-year-old 2 para 0010 at 34 6/7 weeks that presented to labor and delivery yesterday with complaints of right lower quadrant pain. Patient states she hasn't been sleeping well since Tuesday and the pain radiates to her back. She has noted good movement denies connected contractions. Patient was admitted to labor and delivery for observation. Patient had no leukocytosis on repeat labs this morning. She states she is feeling better in the only thing she is noting is fatigue as she is not sleeping well. Patient does have gestational anemia and she has been taking iron once a day encouraged her to increase to twice a day. Patient denies fevers chills nausea this morning. She is feeling better this morning Patient Condition at Discharge: Good Plan - Discharge Summary New Discharge Prescriptions: No Action Pnv No.95/Ferrous Fum/Folic AC [ Multivitamin Tablet] 1 each PO DAILY Iron 18 mg PO DAILY Discharge Medication List Iron 18 mg PO DAILY 08/24/19 [History] Pnv No.95/Ferrous Fum/Folic AC [ Multivitamin Tablet] 1 each PO DAILY 08/24/19 [History] Follow up Appointment(s)/Referral(s): Jairo Samayoa MD [STAFF PHYSICIAN] - 1 Week Activity/Diet/Wound Care/Special Instructions: Patient is encouraged to increase oral hydration, Gatorade/lean proteins are discussed as patient hasn't been eating well. Patient is to be off work this weekend and follow up with Dr. Samayoa next week. She is counseled on safe s leep aids for . Discharge Disposition: HOME SELF-CARE
== END 2019-08-25 09:55 | disposition home or self-care (01) ==
LOC: FBPOP 12:47 → 4FBP 14:25
PROVIDERS: ADMIT Obstetrics & Gynecology Obstetrics; ATTEND Obstetrics & Gynecology Obstetrics
DX: O23.43 Unspecified infection of urinary tract in pregnancy, third trimester (principal); Z3A.34 34 weeks gestation of pregnancy; O99.013 Anemia complicating pregnancy, third trimester; D64.9 Anemia, unspecified; Z90.49 Acquired absence of other specified parts of digestive tract; Z87.11 Personal history of peptic ulcer disease; Z88.5 Allergy status to narcotic agent; Z88.0 Allergy status to penicillin; Z88.8 Allergy status to other drugs, medicaments and biological substances; Z87.448 Personal history of other diseases of urinary system; Z80.1 Family history of malignant neoplasm of trachea, bronchus and lung
CPT/HCPCS: 59025; 99213; 96361; 96365; 80053; 85025; 85027; 81001; G0378 ×2; J0690 ×3

== ENCOUNTER 2019-10-04 17:23 | Inpatient (IN) | payer OTHER ==
[2019-10-04] MEDS ORDERED: METHYLERGONOVINE 0.2 MG/ML 1 ML AMP IM PRN (19:07)
[2019-10-04] MEDS ORDERED: CARBOPROST TROMETHAMINE 250 MCG/ML 1 ML AMP IM PRN (19:07)
[2019-10-04] MEDS ORDERED: TERBUTALINE 1 MG/ML VIAL SQ PRN (19:07)
[2019-10-04] MEDS ORDERED: LIDOCAINE 0.5% (PF) 5 MG/ML (50 ML SDV) SQ PRN (19:07)
[2019-10-04] MEDS ORDERED: OXYTOCIN 10 UNIT/ML 1 ML VIAL IM PRN (19:07)
[2019-10-04] MEDS ORDERED: BUTORPHANOL 1 MG/ML 1 ML VIAL IV PRN (19:09)
--- NOTE | 2019-10-04 19:16 | P.HPOB ---
History of Present Illness H&P Date: 10/04/19 Chief Complaint: 40-2/7 weeks, active labor The patient is a 24-year-old 2 para 0010 admitted at 40-2/7 weeks as established by seven-week ultrasound. She is admitted in early active labor with all signs reassuring. Her has been uncomplicated and group B strep status is negative. She has requested an epidural for analgesia. Obstetrical history: 2 para 0010 with 1 early elective interruption of . Current statistics are listed in history present illness. EDC of 10/02/2019 was established by seven-week ultrasound. Laboratory workup demonstrates a blood type of A+ with a negative antibody screen. Rubella status is immune. Remainder of the laboratory workup was within normal limits though she had a Pap showing ASCUS with positive high-risk HPV. Thyroid testing was within normal limits. One hour Glucola was normal and group B strep status is negative. Gynecologic history: Unremarkable with no history of any infections to include STDs. Review of Systems Review of systems is confined to history of present illness. Past Medical History Past Medical History: No Reported History Additional Past Medical History / Comment(s): KIDNEY INFECTION, NAUSEA, stomach ulcers History of Any Multi-Drug Resistant Organisms: None Reported Past Surgical History: Cholecystectomy Additional Past Surgical History / Comment(s): Past Anesthesia/Blood Transfusion Reactions: No Reported Reaction Past Psychological History: Anxiety, Panic Disorder Smoking Status: Former smoker Past Alcohol Use History: Occasional Past Drug Use History: Marijuana - Past Family History Mother Family Medical History: Cancer Additional Family Medical History / Comment(s): LUNG Medications and Allergies Home Medications Medication Instructions Recorded Confirmed Type Iron 18 mg PO DAILY 08/24/19 10/04/19 History Pnv No.95/Ferrous Fum/Folic AC 1 each PO DAILY 08/24/19 10/04/19 History [ Multivitamin Tablet] Allergies Allergy/AdvReac Type Severity Reaction Status Date / Time acetaminophen Allergy Rash/Hives Verified 10/04/19 17:40 Penicillins Allergy Rash/Hives Verified 10/04/19 17:40 hydrocodone bitartrate AdvReac Nausea & Verified 10/04/19 17:40 [From Vicodin] Vomiting Exam Vital Signs Temp Pulse Resp BP Pulse Ox 10/04/19 17:29 97.0 F L 71 17 116/70 98 Intake and Output 10/04/19 10/04/19 10/04/19 06:59 14:59 22:59 Other: Weight 60.781 kg In general, this is a well-developed, well-nourished white female in some discomfort as she is in active labor. Her heart has a regular rhythm and rate without murmur. Her lungs are clear to auscultation bilaterally in all cedillo. Her abdomen is gravid, nondistended, has normal active bowel sounds, soft, nontender, and without any palpable masses aside from the uterine fundus. Her extremities are without any cyanosis, clubbing, or significant edema and are nontender to palpation bilaterally. Digital cervical examination shows her cervix to be 5 cm dilated, 90% effaced, the vertex in presentation at -1-2 station. Amniotic membranes remained intact at this time. Assessment and Plan (1) Active labor at term Current Visit: Yes Status: Acute Code(s): BAQ8801 - SNOMED Code(s): 92482996 Plan: The patient is admitted for active management of labor. She will have close maternal and surveillance and expectant management will be practiced. She is a good candidate for IV or epidural analgesia and has requested epidural analgesia. Intravenous bolus has been started and the epidural will be placed shortly. She also will undergo artificial rupture of membranes.
[2019-10-04] MEDS: LACTATED RINGERS 1,000 ML IV SCH ×3 (19:17→22:02)
[2019-10-04 19:25] LABS: Basophils # (A) 0.1 k/uL (0-0.2); Basophils % (A) 1 %; Eosinophils # (A) 0.1 k/uL (0-0.7); Eosinophils % (A) 1 %; HCT 32.2 % (34.0-46.0); Lymphocytes % (A) 19 %; MCH 29.7 pg (25.0-35.0); MCHC 34.2 g/dL (31.0-37.0); MCV 86.8 fL (80.0-100.0); Mean Platelet Volume 8.4; Monocytes # (A) 0.6 k/uL (0-1.0); Monocytes % (A) 6 %; Neutrophils # (A) 7.5 k/uL (1.3-7.7); Neutrophils % (A) 72 %; Platelet Count 253 k/uL (150-450); RBC 3.71 m/uL (3.80-5.40); RDW 13.3 % (11.5-15.5); WBC 10.3 k/uL (3.8-10.6)
[2019-10-04] MEDS ORDERED: ROPIVACAINE 5MG/ML 20ML VIAL ONE (19:46)
[2019-10-04] MEDS ORDERED: fentaNYL (PF) 50 MCG/ML 5 ML AMP ONE (19:46)
[2019-10-04] MEDS ORDERED: SODIUM CHLORIDE 0.9% 100 ML BAG ONE (19:46)
[2019-10-04] MEDS ORDERED: OXYTOCIN 30 UNITS/500 ML NS 30 UNIT in SALINE 1 500ML.BAG IV SCH (23:45)
[2019-10-05] MEDS ORDERED: LANOLIN CREAM 5 GM TUBE TOPICAL PRN (00:40)
[2019-10-05] MEDS ORDERED: WITCH HAZEL 1 EACH MED..PAD TOPICAL PRN (00:40)
[2019-10-05] MEDS ORDERED: HYDROCORTISONE 2.5% RECTAL CREAM 30 GM TUBE RECTAL PRN (00:40)
[2019-10-05] MEDS ORDERED: diphenhydrAMINE 50 MG CAP PO PRN (00:40)
[2019-10-05] MEDS ORDERED: diphenhydrAMINE 50 MG/ML 1 ML VIAL IVP PRN ×2 (00:40)
[2019-10-05] MEDS ORDERED: ZOLPIDEM 5 MG TAB PO PRN (00:40)
[2019-10-05] MEDS ORDERED: BENZOCAINE/MENTHOL SPRAY 1 GM/SPRAY AEROSOL TOPICAL PRN (00:40)
[2019-10-05] MEDS ORDERED: SIMETHICONE 80 MG CHEWABLE PO PRN (00:40)
[2019-10-05] MEDS ORDERED: diphenhydrAMINE 25 MG CAP PO PRN (00:40)
[2019-10-05] MEDS ORDERED: OXYTOCIN 20 UNITS/1000 ML NS 1,000 ML IV SCH (00:45)
--- NOTE | 2019-10-05 00:46 | P.PROBDLV ---
Vaginal Delivery Note - . Vaginal Delivery Note: The patient is a 24-year-old 2 para 0010 admitted at 40-2/7 weeks by good dating parameters. She is admitted in early active labor with all signs reassuring. Her has been essentially uncomplicated and group B strep status is negative. On labor and delivery, she underwent artificial rupture of membranes demonstrating moderate meconium-stained fluid. She had an epidural catheter placed for analgesia. She then made fairly slow progress through the active phase of labor with a fairly significantly low heart rate baseline varying from 105-115 bpm. There were occasional decelerations into the 80s with good return an excellent variability throughout. Examination demonstrated the fetus to be in the right occiput posterior position. Multiple position changes cause the fetus to rotate to occiput anterior as she reached complete. She then began pushing at which time the heart rate descended into the 60s to 80s where it remained for the course of 11 minutes. There did remained good variability and excellent descent with pushing. As she began to crown and given the heart rate in the 60s to 80s, a second-degree midline episiotomy was cut after which time she delivered on the first push. She was delivered of a viable 7 lbs. 0 oz. baby boy with Apgars of 8 at 1 minute and 9 at 5 minutes delivered in the direct occiput anterior position. The nose and mouth were thoroughly suctioned on the perineum and the infant was immediately vigorous upon delivery. The placenta was delivered spontaneously, intact, and grossly normal though clearly meconium-stained. There was a grossly normal, centrally inserted three-vessel cord. The second-degree midline episiotomy did not extend and was repaired in standard fashion using 3-0 chromic catgut without difficulty. Estimated blood loss for the case was approximately 150 mL. There were no complications. All sponge, instrument, and needle counts were correct. Both mother and are resting comfortably in recovery.
[2019-10-05] MEDS: IBUPROFEN 600 MG TAB PO PRN ×3 (04:18→16:16)
--- NOTE | 2019-10-05 10:34 | P.PNOBGVD ---
Subjective - Subjective Patient reports: Reports appetite normal, Reports voiding normally, Reports pain well controlled, Reports ambulating normally : doing well Objective - Latest Vital Signs Latest vital signs: Vital Signs Temp Pulse Resp BP Pulse Ox 10/05/19 08:00 98.3 F 53 L 15 115/69 10/05/19 04:15 98.1 F 67 16 107/68 10/05/19 02:33 97.3 F L 62 16 105/75 10/05/19 02:03 66 16 104/57 10/05/19 01:33 54 L 16 102/54 10/05/19 01:18 66 16 99/50 10/05/19 01:03 63 16 114/56 10/05/19 00:48 73 16 107/57 10/05/19 00:33 98 F 86 16 109/74 10/04/19 17:29 97.0 F L 71 17 116/70 98 Intake and Output 10/04/19 10/05/19 10/05/19 22:59 06:59 14:59 Output Total 800 Balance -800 Output: Urine 800 Straight 400 Other: # Voids 1 Weight 60.781 kg - Exam Extremities: Present: normal Abdomen: Present: normal appearance, soft Uterus: Present: normal, firm (The uterine fundus is tonic and nontender around the umbilicus.) - Labs Labs: Abnormal Lab Results - Last 24 Hours (Table) 10/04/19 Range/Units 19:10 RBC 3.71 L (3.80-5.40) m/uL Hgb 11.0 L (11.4-16.0) gm/dL Hct 32.2 L (34.0-46.0) % Assessment and Plan (1) Active labor at term Current Visit: Yes Status: Acute Code(s): [id number] - SNOMED Code(s): 22044973 (2) Normal spontaneous vaginal delivery Current Visit: Yes Status: Acute Code(s): O80 - ENCOUNTER FOR FULL-TERM UNCOMPLICATED DELIVERY SNOMED Code(s): 28650231 Plan: Continue routine care. I would anticipate discharge home tomorrow pending no complications.
[2019-10-05] MEDS: SENNOSIDES-DOCUSATE SODIUM 1 EACH TAB PO SCH ×2 (13:23→20:29)
[2019-10-05] MEDS: LACTATED RINGERS 1,000 ML IV SCH (20:29)
[2019-10-06] MEDS: IBUPROFEN 600 MG TAB PO PRN (02:34)
[2019-10-06 08:20] VITALS: RESP 14
--- NOTE | 2019-10-06 09:37 | P.DS ---
Providers Date of admission: 10/04/19 19:05 Expected date of discharge: 10/06/19 Attending physician: Jairo Samayoa Primary care physician: Stated None Hospital Course: This is a 24-year-old white female 2 para 0010 EDC 10/02/2019 at 40-3/7 weeks' gestation. Patient presented in labor. is remarkable for negative group B strep cultures, rubella status immune, blood type B positive. Please see dictated history and physical for details. Artificial amniorrhexis revealed meconium fluid. Epidural was placed per her request. Patient went on to deliver a liveborn male infant with scores of 8 and 9 at one and 5 minutes respectively. There was an estimated blood loss recorded of 150 mL's. weighed 7 lbs. 0 oz. or 3185 g. There was a small episiotomy easily repaired. Please see dictated delivery note for details. This morning the patient is doing is voiding, ambulating and passing flatus without difficulty. Vital signs are stable and she is afebrile. Fundus is firm and in the midline, symmetric and 18 week size. Extremities are negative for edema. Breast-feeding is going well. I have given her prescription for a double electric breast pump per her request. infant is on the [facility] [employer], plan is likely for discharge home later today per roustabout's recommendation. 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 I have reminded her no intercourse, tampons or douching. She will use [id number] Advil or Aleve, or Motrin as needed for pain. She will call with any fevers shakes or chills, foul smelling or copious lochia, with the passage of large blood clots, with any pain not alleviated by [id number] products, or indeed with any questions difficulties or concerns. Patient Condition at Discharge: Good Plan - Discharge Summary Discharge Rx Participant: No New Discharge Prescriptions: No Action Pnv No.95/Ferrous Fum/Folic AC [ Multivitamin Tablet] 1 each PO DAILY Iron 18 mg PO DAILY Discharge Medication List Iron 18 mg PO DAILY 08/24/19 [History] Pnv No.95/Ferrous Fum/Folic AC [ Multivitamin Tablet] 1 each PO DAILY 08/24/19 [History] Follow up Appointment(s)/Referral(s): Jairo Samayoa MD [STAFF PHYSICIAN] - 6 Weeks
[2019-10-06] MEDS: SENNOSIDES-DOCUSATE SODIUM 1 EACH TAB PO SCH (14:16)
[2019-10-06 15:35] VITALS: BP 109/64; PULSE 68; TEMP 98.2
== END 2019-10-06 18:59 | disposition home or self-care (01) | DRG 807 ==
LOC: FBPOP 17:23 → 4FBP 19:05
PROVIDERS: ADMIT Obstetrics & Gynecology; ATTEND Obstetrics & Gynecology
PROC: 10E0XZZ Delivery of Products of Conception, External Approach (ICD-10-PCS; principal; 2019-10-05)
PROC: 00HU33Z Insertion of Infusion Device into Spinal Canal, Percutaneous Approach (ICD-10-PCS; 2019-10-05)
PROC: 3E0R3BZ Introduction of Anesthetic Agent into Spinal Canal, Percutaneous Approach (ICD-10-PCS; 2019-10-05)
DX: O77.0 Labor and delivery complicated by meconium in amniotic fluid (principal); Z37.0 Single live birth; O99.344 Other mental disorders complicating childbirth; F41.0 Panic disorder [episodic paroxysmal anxiety]; Z3A.40 40 weeks gestation of pregnancy; Z87.11 Personal history of peptic ulcer disease; Z87.891 Personal history of nicotine dependence; Z90.49 Acquired absence of other specified parts of digestive tract; Z88.6 Allergy status to analgesic agent; Z88.5 Allergy status to narcotic agent; Z88.0 Allergy status to penicillin; Z80.1 Family history of malignant neoplasm of trachea, bronchus and lung
CPT/HCPCS: 85025; 86850; 86900; 86901

== ENCOUNTER 2020-03-14 00:15 | Emergency (ER) | payer OTHER ==
[2020-03-14 00:33] VITALS: TEMP 98.7
[2020-03-14] MEDS ORDERED: KETOROLAC 60 MG/2 ML VIAL IM STA (00:46)
[2020-03-14 01:04] LABS: Appearance,Urine Clear (Clear); Bacteria,Urine Rare /hpf; Bilirubin,Urine Negative (Negative); Blood,Urine Trace (Negative); Color,Urine Yellow; Glucose,Urine (UA) Negative (Negative); Ketones,Urine Negative (Negative); Leukocyte Esterase,Urine Negative (Negative); Mucus,Urine Many /hpf; Nitrite,Urine Negative (Negative); PH, Urine 5.5 (5.0-8.0); Protein,Urine Trace (Negative); RBC,Urine 2 /hpf (0-5); Squamous Epithelial Cell,Urine 3 /hpf (0-4); Urobilinogen,Urine <2.0 mg/dL (<2.0); WBC,Urine 3 /hpf (0-5)
--- NOTE | 2020-03-14 01:20 | ED ---
Back Pain HPI - General Source: patient Limitations: no limitations <Aimee Giles - Last Filed: 03/14/20 02:44> <Esther Stewart - Last Filed: 03/14/20 03:33> - General Chief Complaint: Back Pain/Injury Stated Complaint: Back pain Time Seen by Provider: 03/14/20 00:35 - History of Present Illness Initial Comments: Patient is a 24-year-old female presenting to the emergency Department with complaints of left-sided thoracic pain x 1 day. Patient states she woke up yesterday with this and trying to deal with it throughout the day however when she went to go to bed this evening she states she is not able to get comfortable and is in a lot of pain. She states she did not have any falls or trauma or did anything to injure her back. She denies any previous back injuries or pain. She denies any recent fever, chills, nausea, vomiting. She denies any abdominal pain. She denies history of kidney stones. She denies any urinary complaints. She denies being at this time. She has no further complaints at this time. Upon arrival to the ER, her vitals are stable. (Aimee Giles) - Related Data Home Medications Medication Instructions Recorded Confirmed Iron 18 mg PO DAILY 08/24/19 10/04/19 Pnv No.95/Ferrous Fum/Folic AC 1 each PO DAILY 08/24/19 10/04/19 [ Multivitamin Tablet] Allergies Allergy/AdvReac Type Severity Reaction Status Date / Time acetaminophen Allergy Rash/Hives Verified 03/14/20 00:30 Penicillins Allergy Rash/Hives Verified 03/14/20 00:30 hydrocodone bitartrate AdvReac Nausea & Verified 03/14/20 00:30 [From Vicodin] Vomiting Review of Systems ROS Other: All systems not noted in ROS Statement are negative. <Aimee Giles - Last Filed: 03/14/20 02:44> ROS Other: All systems not noted in ROS Statement are negative. <Esther Stewart - Last Filed: 03/14/20 03:33> ROS Statement: Those systems with pertinent positive or pertinent negative responses have been documented in the HPI. Past Medical History Past Medical History: No Reported History Additional Past Medical History / Comment(s): KIDNEY INFECTION, NAUSEA, stomach ulcers History of Any Multi-Drug Resistant Organisms: None Reported Past Surgical History: Cholecystectomy Additional Past Surgical History / Comment(s): Past Anesthesia/Blood Transfusion Reactions: No Reported Reaction Past Psychological History: Anxiety, Panic Disorder Smoking Status: Former smoker Past Alcohol Use History: Occasional Past Drug Use History: None Reported, Marijuana - Past Family History Mother Family Medical History: Cancer Additional Family Medical History / Comment(s): LUNG <Aimee Giles - Last Filed: 03/14/20 02:44> General Exam Limitations: no limitations <Aimee Giles - Last Filed: 03/14/20 02:44> - General Exam Comments Initial Comments: GENERAL: Well-appearing, well-nourished and in no acute distress, although looks uncomfortable HEAD: Atraumatic, normocephalic. EYES: Pupils equal round and reactive to light, extraocular movements intact, sclera anicteric, conjunctiva are normal. ENT: TMs normal, nares patent, oropharynx clear without exudates. Moist mucous membranes. NECK: Normal range of motion, supple without lymphadenopathy or JVD. LUNGS: Breath sounds clear to auscultation bilaterally and equal. No wheezes rales or rhonchi. HEART: Regular rate and rhythm without murmurs, rubs or gallops. ABDOMEN: Soft, nontender, normoactive bowel sounds. No guarding, no rebound. No masses appreciated. : Deferred EXTREMITIES: Left flank pain and tenderness with percussion, mild left thoracic paraspinals pain with palpation. No thoracic spine tenderness. No pitting or edema. No clubbing or cyanosis. NEUROLOGICAL: Normal speech, normal gait. PSYCH: Normal mood, normal affect. SKIN: Warm, Dry, normal turgor, no rashes or lesions noted. (Aimee Giles) Course Vital Signs 03/14/20 00:30 Temperature 98.7 F Pulse Rate 96 Respiratory 18 Rate Blood Pressure 124/75 O2 Sat by Pulse 99 Oximetry Medical Decision Making - Lab Data Result diagrams: 03/14/20 01:47 03/14/20 01:47 <Aimee Giles - Last Filed: 03/14/20 02:44> - Lab Data Result diagrams: 03/14/20 01:47 03/14/20 01:47 <Esther Stewart Last Filed: 03/14/20 03:33> - Lab Data Lab Results 03/14/20 03/14/20 03/14/20 Range/Units 00:18 00:18 01:47 WBC 10.4 (3.8-10.6) k/uL RBC 4.07 (3.80-5.40) m/uL Hgb 12.2 (11.4-16.0) gm/dL Hct 36.1 (34.0-46.0) % MCV 88.6 (80.0-100.0) fL MCH 30.0 (25.0-35.0) pg MCHC 33.9 (31.0-37.0) g/dL RDW 12.7 (11.5-15.5) % Plt Count 296 (150-450) k/uL Neutrophils % 75 % Lymphocytes % 17 % Monocytes % 5 % Eosinophils % 2 % Basophils % 0 % Neutrophils # 7.8 H (1.3-7.7) k/uL Lymphocytes # 1.8 (1.0-4.8) k/uL Monocytes # 0.5 (0-1.0) k/uL Eosinophils # 0.2 (0-0.7) k/uL Basophils # 0.0 (0-0.2) k/uL Sodium (137-145) mmol/L Potassium (3.5-5.1) mmol/L Chloride (98-107) mmol/L Carbon Dioxide (22-30) mmol/L Anion Gap mmol/L BUN (7-17) mg/dL Creatinine (0.52-1.04) mg/dL Est GFR (CKD-EPI)AfAm (>60 ml/min/1.73 sqM) Est GFR (CKD-EPI)NonAf (>60 ml/min/1.73 sqM) Glucose (74-99) mg/dL Calcium (8.4-10.2) mg/dL Total Bilirubin (0.2-1.3) mg/dL AST (14-36) U/L ALT (4-34) U/L Alkaline Phosphatase (38-126) U/L Total Protein (6.3-8.2) g/dL Albumin (3.5-5.0) g/dL HCG, Quant mIU/mL Urine Color Yellow Urine Appearance Clear (Clear) Urine pH 5.5 (5.0-8.0) Ur Specific Donahue 1.030 (1.001-1.035) Urine Protein Trace H (Negative) Urine Glucose (UA) Negative (Negative) Urine Ketones Negative (Negative) Urine Blood Trace H (Negative) Urine Nitrite Negative (Negative) Urine Bilirubin Negative (Negative) Urine Urobilinogen <2.0 (<2.0) mg/dL Ur Leukocyte Esterase Negative (Negative) Urine RBC 2 (0-5) /hpf Urine WBC 3 (0-5) /hpf Ur Squamous Epith Cells 3 (0-4) /hpf Urine Bacteria Rare H (None) /hpf Urine Mucus Many H (None) /hpf Urine HCG, Qual Detected (Not Detectd) 03/14/20 Range/Units 01:47 WBC (3.8-10.6) k/uL RBC (3.80-5.40) m/uL Hgb (11.4-16.0) gm/dL Hct (34.0-46.0) % MCV (80.0-100.0) fL MCH (25.0-35.0) pg MCHC (31.0-37.0) g/dL RDW (11.5-15.5) % Plt Count (150-450) k/uL Neutrophils % % Lymphocytes % % Monocytes % % Eosinophils % % Basophils % % Neutrophils # (1.3-7.7) k/uL Lymphocytes # (1.0-4.8) k/uL Monocytes # (0-1.0) k/uL Eosinophils # (0-0.7) k/uL Basophils # (0-0.2) k/uL Sodium 135 L (137-145) mmol/L Potassium 3.4 L (3.5-5.1) mmol/L Chloride 104 (98-107) mmol/L Carbon Dioxide 23 (22-30) mmol/L Anion Gap 8 mmol/L BUN 12 (7-17) mg/dL Creatinine 0.46 L (0.52-1.04) mg/dL Est GFR (CKD-EPI)AfAm >90 (>60 ml/min/1.73 sqM) Est GFR (CKD-EPI)NonAf >90 (>60 ml/min/1.73 sqM) Glucose 103 H (74-99) mg/dL Calcium 9.5 (8.4-10.2) mg/dL Total Bilirubin 1.0 (0.2-1.3) mg/dL AST 19 (14-36) U/L ALT 14 (4-34) U/L Alkaline Phosphatase 52 (38-126) U/L Total Protein 7.6 (6.3-8.2) g/dL Albumin 4.6 (3.5-5.0) g/dL HCG, Quant 1749.9 mIU/mL Urine Color Urine Appearance (Clear) Urine pH (5.0-8.0) Ur Specific Donahue (1.001-1.035) Urine Protein (Negative) Urine Glucose (UA) (Negative) Urine Ketones (Negative) Urine Blood (Negative) Urine Nitrite (Negative) Urine Bilirubin (Negative) Urine Urobilinogen (<2.0) mg/dL Ur Leukocyte Esterase (Negative) Urine RBC (0-5) /hpf Urine WBC (0-5) /hpf Ur Squamous Epith Cells (0-4) /hpf Urine Bacteria (None) /hpf Urine Mucus (None) /hpf Urine HCG, Qual (Not Detectd) Disposition <Aimee Giles L - Last Filed: 03/14/20 02:44> Is patient prescribed a controlled substance at d/c from ED?: No <Esther Stewart - Last Filed: 03/14/20 03:33> Clinical Impression: Early stage of Disposition: HOME SELF-CARE Condition: Stable Instructions (If sedation given, give patient instructions): Acute Low Back Pain (ED) Referrals: Spencer Jackson DO [Primary Care Provider] - 1-2 days Jairo Samayoa MD [STAFF PHYSICIAN] - 1-2 days
[2020-03-14 01:55] LABS: Basophils % (A) 0 %; Eosinophils # (A) 0.2 k/uL (0-0.7); Eosinophils % (A) 2 %; HCT 36.1 % (34.0-46.0); HGB 12.2 gm/dL (11.4-16.0); Lymphocytes # (A) 1.8 k/uL (1.0-4.8); Lymphocytes % (A) 17 %; MCHC 33.9 g/dL (31.0-37.0); MCV 88.6 fL (80.0-100.0); Mean Platelet Volume 6.7; Monocytes # (A) 0.5 k/uL (0-1.0); Monocytes % (A) 5 %; Neutrophils # (A) 7.8 k/uL (1.3-7.7); Neutrophils % (A) 75 %; Platelet Count 296 k/uL (150-450); RBC 4.07 m/uL (3.80-5.40); RDW 12.7 % (11.5-15.5); WBC 10.4 k/uL (3.8-10.6)
[2020-03-14 02:05] LABS: ALT 14 U/L (4-34); AST 19 U/L (14-36); African American GFR (CKD) >90 (>60 ml/min/1.73 sqM); Albumin 4.6 g/dL (3.5-5.0); Alkaline Phosphatase 52 U/L (38-126); Anion Gap 8 mmol/L; Blood Urea Nitrogen 12 mg/dL (7-17); Calcium 9.5 mg/dL (8.4-10.2); Carbon Dioxide 23 mmol/L (22-30); Chloride 104 mmol/L (98-107); Glucose 103 mg/dL (74-99); Non-African American GFR(CKD) >90 (>60 ml/min/1.73 sqM); Potassium 3.4 mmol/L (3.5-5.1); Sodium 135 mmol/L (137-145); Total Protein 7.6 g/dL (6.3-8.2)
[2020-03-14 02:21] LABS: HCG,Quantitative Serum 1749.9 mIU/mL
--- NOTE | 2020-03-14 03:19 | US ---
EXAMINATION TYPE: US kidneys/renal and bladder DATE OF EXAM: 03/14/2020 COMPARISON: CT, US CLINICAL HISTORY: left flank pain. Left flank pain x 1 day. Hx cholecystectomy. EXAM MEASUREMENTS: Right Kidney: 12.6 x 6.6 x 4.5 cm Left Kidney: 12.6 x 5.4 x 5.9 cm Right Kidney: Measures enlarged versus upper limits of normal. Left Kidney: Pyramids appear to have hyperechoic border. Measures enlarged versus upper limits of nor mal. Some images taken prone. Bladder: Appears anechoic. Not fully distended. Bilateral Jets seen: No. Limited bladder evaluation; bladder is undistended. IMPRESSION: Right kidney is large but no discrete mass seen. No evidence of obstruction. No hydronephrosis.
--- NOTE | 2020-03-14 03:22 | US ---
EXAMINATION TYPE: Transabdominal DATE OF EXAM: 03/14/2020 3:02 AM COMPARISON: US, CT CLINICAL HISTORY: left flank pain. Left flank pain x 1 day. Hx ovarian cysts. A1. Patient says s he had complications with first and resulted in terminating. EXAM PERFORMED: Transvaginal (TV) and Transabdominal (TA) EXAM MEASUREMENTS: GESTATIONAL AGE / DATING Physician Established: Not yet established. Dates by LMP: (3 weeks/5 days) EDC: 11/23/2020 Dates by First Scan: This is first scan Dates by Current Scan for: Gestational sac measures out of range. MATERNAL ANATOMY Uterus: 9.1 x 7.6 x 5.8 cm. Right Ovary: 3.1 x 2.1 x 2.0 cm. Mixed area seen as mentioned below. Left Ovary: 2.4 x 1.9 x 1.8 cm. Follicles seen. Post CDS / Adnexa: Fluid seen within the CDS. Prominent vessels are seen bilateral adnexa. Presence of free fluid: Yes, within CDS. Presence of corpus luteal cyst: Area of mixed echogenicity and peripheral vascularity seen right ovar y measurin.0 x 1.6 x 1.4 cm. Presence of subchorionic bleed: No GESTATION / SURVEY MSD: 0.41 cm. Measures OOR. Yolk Sac (normal less than 6mm): Not seen. IUP: Gestational sac seen at this time. Date of LMP: 02/17/2020 Beta HcG (if available): 1,749.9 IMPRESSION: Possible 5 mm intrauterine gestational sac. Follow-up exam recommended in 14 days to confirm a living fetus. No adnexal mass to suggest ectopic .
[2020-03-14 03:38] VITALS: BP 106/64; PULSE 69; RESP 16
== END 2020-03-14 03:48 | disposition home or self-care (01) ==
LOC: EC 00:15
DX: Z34.90 Encounter for supervision of normal pregnancy, unspecified, unspecified trimester (principal); Z3A.00 Weeks of gestation of pregnancy not specified; Z90.49 Acquired absence of other specified parts of digestive tract; Z87.891 Personal history of nicotine dependence
CPT/HCPCS: 36415; 80053; 85025; 81001; 81025; 84702; 76801; 76817; 76770; 99284; 96372; J1885

== ENCOUNTER → 2020-08-14 | Outpatient (CLI) | payer OTHER ==
--- NOTE | 2020-08-14 10:01 | ECHOF ---
Referral Reason:Z82.49 Family history of ischemic heart disease MEASUREMENTS -------- HEIGHT: 154.9 cm WEIGHT: 59.0 kg BP: RVIDd: 3.3 cm (< 3.3) IVSd: 0.8 cm (0.6 - 1.1) LVIDd: 3.7 cm (3.9 - 5.3) LVPWd: 1.0 cm (0.6 - 1.1) IVSs: 1.3 cm LVIDs: 2.6 cm LVPWs: 1.5 cm LAESV Index (A-L): 29.76 ml/m MV E Brian: 1.13 m/s MV DecT: 157 ms MV A Brian: 0.55 m/s MV E/A Ratio: 2.04 RAP: 5.00 mmHg RVSP: 11.02 mmHg FINDINGS -------- This was a technically good study. The left ventricular size is normal. Left ventricular wall thickness is normal. Overall left vent ricular systolic function is normal with, an EF between 55 - 60 %. The diastolic filling pattern is normal for the age of the patient 10.46. The right ventricle is mildly enlarged. LA is midly dilated 29-33ml/m2. The right atrial size is normal. Interatrial and interventricular septum intact. The aortic valve is trileaflet and appears structurally normal. The mitral valve is normal. Mild mitral regurgitation is present. There is mild mitral valve prol apse , predominately a posteriorly directed jet. The tricuspid valve appears structurally normal. Mild tricuspid regurgitation present. Right vent ricular systolic pressure is normal at < 35 mmHg. There is no pulmonic regurgitation present. The aortic root size is normal. Normal inferior vena cava with normal inspiratory collapse consistent with estimated right atrial pre ssure of 5 mmHg. There is no pericardial effusion. CONCLUSIONS -------- 1. The left ventricular size is normal. 2. Left ventricular wall thickness is normal. 3. Overall left ventricular systolic function is normal with, an EF between 55 - 60 %. 4. The diastolic filling pattern is normal for the age of the patient 10.46 5. The right ventricle is mildly enlarged. 6. LA is midly dilated 29-33ml/m2. 7. Mild mitral regurgitation is present. 8. There is mild mitral valve prolapse. 9. , predominately a posteriorly directed jet. 10. Mild tricuspid regurgitation present. 11. There is no pericardial effusion. BURRING MACHINE OPERATOR: Oliva Dolan RDCS
--- NOTE | 2020-08-14 11:14 | EST ---
EXERCISE STRESS AGE: 25 SEX: F HT: 61" WT: 130 PROTOCOL: Steven Stress Test STAGE: 3 DURATION OF EXERCISE: 8:00 HEART RATE REST: 67 BLOOD PRESSURE REST: 109/64 MAXIMUM HEART RATE ACHIEVED: 161 MAXIMUM BLOOD PRESSURE: 145/43 85% MPHR: 166 100% MPHR: 195 METS: 9.7 INDICATIONS: Family history/chest pain. CLINICAL INFORMATION: Baseline EKG revealed normal sinus rhythm with right ventricular conduction delay. Patient walked on standard Steven protocol for 8 minutes, achieved a maximal heart rate of 161 beats per minute which is almost 85% of predicted maximal. She developed fatigue and shortness of breath but did not have angina or arrhythmia. EKG revealed some artifact but no evidence to suggest any ST-segment changes to indicate ischemia. By EKG criteria, this is a negative stress test with almost 85% of predicted maximal heart rate. The patient's conditioning is probably suboptimal. There is no evidence to suggest ischemia at this heart rate level. FINAL IMPRESSION: 1. Limited exercise capacity. 2. Probably negative stress test. The patient achieved slightly less than 85% of her predicted maximal heart rate. However, there is no evidence suggest ischemia by EKG criteria and patient did not have any angina and there was no arrhythmia. MMODL / IJN: [id number] /
== END | disposition home or self-care (01) ==
LOC: RADECHMAIN 08:06
PROVIDERS: ATTEND Family Medicine
DX: I08.1 Rheumatic disorders of both mitral and tricuspid valves (principal); Z82.49 Family history of ischemic heart disease and other diseases of the circulatory system
CPT/HCPCS: 93017; 93306

== ENCOUNTER 2021-01-08 14:05 | Emergency (ER) | payer OTHER ==
[2021-01-08] MEDS ORDERED: SODIUM CHLORIDE 0.9% 2,000 ML IV STA (15:07)
--- NOTE | 2021-01-08 15:09 | ED ---
General Adult HPI - General Source: patient, RN notes reviewed Mode of arrival: ambulatory Limitations: no limitations <Edin Salazar - Last Filed: 01/08/21 15:08> <Yumiko Robledo - Last Filed: 01/08/21 23:17> - General Stated complaint: 3mo Preg,Nausea,Vomitting Time Seen by Provider: 01/08/21 15:04 - History of Present Illness Initial comments: This a 25-year-old female who is A2 presents emergency Department chief complaint nausea vomiting dehydration. Patient states that she is approximately [address] Stahl. Patient states that she's been having intractable nausea vomiting. Patient states he feels dehydrated.. No reported fever no cough or cold-like symptoms. No vaginal bleeding or vaginal discharge or unusual. (Edin Salazar) - Related Data Home Medications Medication Instructions Recorded Confirmed Pedi Multivit No.25/Folic Acid 2 tab PO DAILY 01/08/21 01/08/21 [Flintstones Multivit Chew Tab] Previous Rx's Medication Instructions Recorded Metoclopramide [Reglan] 10 mg PO TID PRN #15 tab 01/08/21 Allergies Allergy/AdvReac Type Severity Reaction Status Date / Time acetaminophen Allergy Rash/Hives Verified 01/08/21 16:19 Penicillins Allergy Rash/Hives Verified 01/08/21 16:19 hydrocodone bitartrate AdvReac Nausea & Verified 01/08/21 16:19 [From Vicodin] Vomiting Review of Systems ROS Other: All systems not noted in ROS Statement are negative. <Edin Salazar - Last Filed: 01/08/21 15:08> ROS Other: All systems not noted in ROS Statement are negative. <Yumiko Robledo - Last Filed: 01/08/21 23:17> ROS Statement: Those systems with pertinent positive or pertinent negative responses have been documented in the HPI. Past Medical History Past Medical History: No Reported History Additional Past Medical History / Comment(s): KIDNEY INFECTION, NAUSEA, stomach ulcers History of Any Multi-Drug Resistant Organisms: None Reported Past Surgical History: Cholecystectomy Additional Past Surgical History / Comment(s): Past Anesthesia/Blood Transfusion Reactions: No Reported Reaction Past Psychological History: Anxiety, Panic Disorder Past Alcohol Use History: Occasional Past Drug Use History: None Reported, Marijuana - Past Family History Mother Family Medical History: Cancer Additional Family Medical History / Comment(s): LUNG <Edin Salazar - Last Filed: 01/08/21 15:08> Course Vital Signs 01/08/21 01/08/21 15:08 17:52 Temperature 97.0 F L 98.1 F Pulse Rate 60 87 Respiratory 18 19 Rate Blood Pressure 116/68 117/82 O2 Sat by Pulse 100 98 Oximetry Medical Decision Making - Lab Data Result diagrams: 01/08/21 16:46 01/08/21 16:46 <Yumiko Robledo - Last Filed: 01/08/21 23:17> - Medical Decision Making Upon arrival patient is placed into hallway 20. There are history and physical exam was performed. IV is established the patient is given a liter bolus of saline. She is also provided with Reglan and Benadryl. Laboratory studies are conducted. Colace is not detected. Ultrasound was demonstrated normal intrauterine with gestational age of 12 weeks 5 days. Heart rate 146. Results are discussed with the patient. Reports improvement in her symptoms at this time. Will be discharged home and is to follow-up with her INTERVENTIONAL RADIOLOGY TECHNOLOGIST. Patient agreed to this and she is discharged home in stable condition. Reglan called into the pharmacy (Yumiko Robledo) - Lab Data Lab Results 01/08/21 01/08/21 01/08/21 Range/Units 16:41 16:41 16:46 WBC 9.3 (3.8-10.6) k/uL RBC 4.37 (3.80-5.40) m/uL Hgb 13.1 (11.4-16.0) gm/dL Hct 38.4 (34.0-46.0) % MCV 87.7 (80.0-100.0) fL MCH 29.9 (25.0-35.0) pg MCHC 34.1 (31.0-37.0) g/dL RDW 12.6 (11.5-15.5) % Plt Count 268 (150-450) k/uL MPV 6.6 Neutrophils % 74 % Lymphocytes % 18 % Monocytes % 5 % Eosinophils % 1 % Basophils % 0 % Neutrophils # 6.9 (1.3-7.7) k/uL Lymphocytes # 1.7 (1.0-4.8) k/uL Monocytes # 0.5 (0-1.0) k/uL Eosinophils # 0.1 (0-0.7) k/uL Basophils # 0.0 (0-0.2) k/uL Sodium (137-145) mmol/L Potassium (3.5-5.1) mmol/L Chloride (98-107) mmol/L Carbon Dioxide (22-30) mmol/L Anion Gap mmol/L BUN (7-17) mg/dL Creatinine (0.52-1.04) mg/dL Est GFR (CKD-EPI)AfAm (>60 ml/min/1.73 sqM) Est GFR (CKD-EPI)NonAf (>60 ml/min/1.73 sqM) Glucose (74-99) mg/dL Calcium (8.4-10.2) mg/dL Total Bilirubin (0.2-1.3) mg/dL AST (14-36) U/L ALT (4-34) U/L Alkaline Phosphatase (38-126) U/L Total Protein (6.3-8.2) g/dL Albumin (3.5-5.0) g/dL Lipase (23-300) U/L HCG, Quant mIU/mL Urine Color Yellow Urine Appearance Clear (Clear) Urine pH 5.5 (5.0-8.0) Ur Specific [place] 1.024 (1.001-1.035) Urine Protein Negative (Negative) Urine Glucose (UA) Negative (Negative) Urine Ketones 1+ H (Negative) Urine Blood Small H (Negative) Urine Nitrite Negative (Negative) Urine Bilirubin Negative (Negative) Urine Urobilinogen <2.0 (<2.0) mg/dL Ur Leukocyte Esterase Negative (Negative) Urine RBC 1 (0-5) /hpf Urine WBC 2 (0-5) /hpf Ur Squamous Epith Cells 6 H (0-4) /hpf Urine Mucus Moderate H (None) /hpf Coronavirus (PCR) Not Detected (Not Detectd) 01/08/21 Range/Units 16:46 WBC (3.8-10.6) k/uL RBC (3.80-5.40) m/uL Hgb (11.4-16.0) gm/dL Hct (34.0-46.0) % MCV (80.0-100.0) fL MCH (25.0-35.0) pg MCHC (31.0-37.0) g/dL RDW (11.5-15.5) % Plt Count (150-450) k/uL MPV Neutrophils % % Lymphocytes % % Monocytes % % Eosinophils % % Basophils % % Neutrophils # (1.3-7.7) k/uL Lymphocytes # (1.0-4.8) k/uL Monocytes # (0-1.0) k/uL Eosinophils # (0-0.7) k/uL Basophils # (0-0.2) k/uL Sodium 133 L (137-145) mmol/L Potassium 3.8 (3.5-5.1) mmol/L Chloride 102 (98-107) mmol/L Carbon Dioxide 22 (22-30) mmol/L Anion Gap 9 mmol/L BUN 6 L (7-17) mg/dL Creatinine 0.28 L (0.52-1.04) mg/dL Est GFR (CKD-EPI)AfAm >90 (>60 ml/min/1.73 sqM) Est GFR (CKD-EPI)NonAf >90 (>60 ml/min/1.73 sqM) Glucose 85 (74-99) mg/dL Calcium 9.4 (8.4-10.2) mg/dL Total Bilirubin 1.3 (0.2-1.3) mg/dL AST 20 (14-36) U/L ALT 9 (4-34) U/L Alkaline Phosphatase 53 (38-126) U/L Total Protein 7.9 (6.3-8.2) g/dL Albumin 4.7 (3.5-5.0) g/dL Lipase 66 (23-300) U/L HCG, Quant 37305.2 mIU/mL Urine Color Urine Appearance (Clear) Urine pH (5.0-8.0) Ur Specific [place] (1.001-1.035) Urine Protein (Negative) Urine Glucose (UA) (Negative) Urine Ketones (Negative) Urine Blood (Negative) Urine Nitrite (Negative) Urine Bilirubin (Negative) Urine Urobilinogen (<2.0) mg/dL Ur Leukocyte Esterase (Negative) Urine RBC (0-5) /hpf Urine WBC (0-5) /hpf Ur Squamous Epith Cells (0-4) /hpf Urine Mucus (None) /hpf Coronavirus (PCR) (Not Detectd) Disposition <Edin Salazar M - Last Filed: 01/08/21 15:08> Is patient prescribed a controlled substance at d/c from ED?: No Time of Disposition: 17:47 <Yumiko Robledo Cassanrda - Last Filed: 01/08/21 23:17> Clinical Impression: Nausea & vomiting, First trimester Disposition: HOME SELF-CARE Condition: Stable Instructions (If sedation given, give patient instructions): Acute Nausea and Vomiting (ED) Additional Instructions: Please follow up with your OBGYN in 2-4 days. You were negative for Covid today but we still recommend you quarantine until your symptoms improve. Return to the ED for any new or worsening symptoms. Prescriptions: Metoclopramide [Reglan] 10 mg PO TID PRN #15 tab PRN Reason: GERD Referrals: Spencer Jackson DO [Primary Care Provider] - 1-2 days Dustin Queen DO [Doctor of Osteopathic Medicine] - 1-2 days
[2021-01-08] MEDS ORDERED: ONDANSETRON 4 MG/2 ML VIAL IVP STA (16:07)
[2021-01-08] MEDS ORDERED: diphenhydrAMINE 50 MG/ML 1 ML VIAL IVP STA (16:13)
[2021-01-08] MEDS ORDERED: METOCLOPRAMIDE 5 MG/ML 2 ML VIAL IVP STA (16:13)
[2021-01-08 16:50] LABS: Appearance,Urine Clear (Clear); Bilirubin,Urine Negative (Negative); Blood,Urine Small (Negative); Color,Urine Yellow; Glucose,Urine (UA) Negative (Negative); Ketones,Urine 1+ (Negative); Leukocyte Esterase,Urine Negative (Negative); Mucus,Urine Moderate /hpf; Nitrite,Urine Negative (Negative); PH, Urine 5.5 (5.0-8.0); Protein,Urine Negative (Negative); RBC,Urine 1 /hpf (0-5); Specific Gravity,Urine 1.024 (1.001-1.035); Squamous Epithelial Cell,Urine 6 /hpf (0-4); Urobilinogen,Urine <2.0 mg/dL (<2.0); WBC,Urine 2 /hpf (0-5)
[2021-01-08 16:51] LABS: Basophils % (A) 0 %; Eosinophils # (A) 0.1 k/uL (0-0.7); Eosinophils % (A) 1 %; HCT 38.4 % (34.0-46.0); HGB 13.1 gm/dL (11.4-16.0); Lymphocytes # (A) 1.7 k/uL (1.0-4.8); Lymphocytes % (A) 18 %; MCH 29.9 pg (25.0-35.0); MCHC 34.1 g/dL (31.0-37.0); MCV 87.7 fL (80.0-100.0); Mean Platelet Volume 6.6; Monocytes # (A) 0.5 k/uL (0-1.0); Monocytes % (A) 5 %; Neutrophils # (A) 6.9 k/uL (1.3-7.7); Neutrophils % (A) 74 %; Platelet Count 268 k/uL (150-450); RBC 4.37 m/uL (3.80-5.40); RDW 12.6 % (11.5-15.5); WBC 9.3 k/uL (3.8-10.6)
[2021-01-08 17:05] LABS: ALT 9 U/L (4-34); AST 20 U/L (14-36); African American GFR (CKD) >90 (>60 ml/min/1.73 sqM); Albumin 4.7 g/dL (3.5-5.0); Alkaline Phosphatase 53 U/L (38-126); Anion Gap 9 mmol/L; Blood Urea Nitrogen 6 mg/dL (7-17); Calcium 9.4 mg/dL (8.4-10.2); Carbon Dioxide 22 mmol/L (22-30); Chloride 102 mmol/L (98-107); Glucose 85 mg/dL (74-99); Lipase 66 U/L (23-300); Non-African American GFR(CKD) >90 (>60 ml/min/1.73 sqM); Potassium 3.8 mmol/L (3.5-5.1); Sodium 133 mmol/L (137-145); Total Bilirubin 1.3 mg/dL (0.2-1.3); Total Protein 7.9 g/dL (6.3-8.2)
--- NOTE | 2021-01-08 17:28 | US ---
EXAMINATION TYPE: Transabdominal (TA) DATE OF EXAM: 01/08/2021 4:56 PM COMPARISON: NONE CLINICAL HISTORY: new . Pt states nausea and vomiting and cramping EXAM PERFORMED: Transabdominal (TA) EXAM MEASUREMENTS: GESTATIONAL AGE / DATING Physician Established: Not yet established Dates by LMP: (13 weeks/2 days) EDC: 07/14/2021 Dates by First Scan: No previous this is first scan Dates by Current Scan for: (12 weeks/5 days) EDC: 07/18/2021 MATERNAL ANATOMY Uterus: 12.5 x 8.7 x 9.6 cm Right Ovary: 2.9 x 1.3 x 2.4 cm Left Ovary: 2.8 x 1.8 x 3.0 cm Post CDS / Adnexa: wnl Presence of free fluid: No Presence of corpus luteal cyst: No Presence of subchorionic bleed: No GESTATION / SURVEY CRL: 6.4 cm (12 weeks/5 days) MSD: wnl Heart Rate: 146 bpm Rhythm: Normal IUP: Viable IUP IMPRESSION: Single, viable intrauterine with no acute process.
[2021-01-08 17:55] VITALS: BP 117/82; PULSE 87; RESP 19; TEMP 98.1
[2021-01-08 18:31] LABS: HCG,Quantitative Serum 93697.2 mIU/mL
== END 2021-01-08 17:55 | disposition home or self-care (01) ==
LOC: EC 14:05
DX: O21.9 Vomiting of pregnancy, unspecified (principal); O99.341 Other mental disorders complicating pregnancy, first trimester; F41.9 Anxiety disorder, unspecified; Z20.822 Contact with and (suspected) exposure to COVID-19; Z3A.12 12 weeks gestation of pregnancy
CPT/HCPCS: 36415; 80053; 83690; 85025; 81001; 84702; 87635; 76801; 99284; 96374; 96375; J1200; J2765

== ENCOUNTER → 2021-01-16 | Outpatient (CLI) | payer OTHER ==
--- NOTE | 2021-01-16 14:58 | US ---
EXAMINATION TYPE: Ultrasound OB <= 14 week fetus DATE OF EXAM: 01/16/2021 10:42 AM COMPARISON: 01/08/2021 CLINICAL HISTORY: 25-year-old female Z36 Confirm Dates. EXAM PERFORMED: Transabdominal (TA) FINDINGS: EXAM MEASUREMENTS: GESTATIONAL AGE / DATING Physician Established: Not yet established Dates by LMP: LMP unknown Dates by First Scan: (13 weeks/6 days) EDC: 07/18/21 Dates by Current Scan for: (13 weeks/6 days) EDC: 07/18/21 MATERNAL ANATOMY Uterus: 12.5 x 8.7 x 9.8cm Right Ovary: 3.0 x 1.5 x 2.2cm Left Ovary: 2.4 x 1.1 x 2.1cm Post CDS / Adnexa: appears wnl Presence of free fluid: no Presence of corpus luteal cyst: no Presence of subchorionic bleed: no GESTATION / SURVEY CRL: 7.8cm (13 weeks/6 days) Yolk Sac (normal less than 6mm): not seen Heart Rate: 145 bpm Rhythm: Normal IUP: Viable IUP Date of LMP: unknown Beta HcG (if available): Not available at this time IMPRESSION: 1. Single live intrauterine with gestational age of 13 weeks 6 days by CRL. There has been appropriate interval growth as compared to the initial 01/08/2021 scan. 2. Complete survey recommended at 18-20 weeks.
== END | disposition home or self-care (01) ==
LOC: RADUSWWP 10:05
PROVIDERS: ATTEND Obstetrics & Gynecology
DX: Z36.87 Encounter for antenatal screening for uncertain dates (principal); Z3A.13 13 weeks gestation of pregnancy
CPT/HCPCS: 76801

== ENCOUNTER 2021-06-26 11:28 | Outpatient (CLI) | payer OTHER ==
--- NOTE | 2021-06-26 12:49 | US ---
EXAMINATION TYPE: US OB >= 14 wk fetus DATE OF EXAM: 06/26/2021 COMPARISON: None CLINICAL HISTORY: IUGR TECHNIQUE: Transabdominal (TA) GESTATIONAL AGE / DATING Physician Established: (36 weeks/6 days) EDC: 07-18-21 Dates by LMP: LMP unknown Dates by First Scan: (36 weeks/6 days) EDC: 07-18-21 Dates by Current Scan: (33 weeks/4 days) EDC: 08-10-21 SURVEY IUP: Single PLACENTA: Anterior PREVIA: No Previa RAE: 10.4 cm CERVICAL LENGTH (transabdominal: norm > 3.0cm) not seen, bladder empty. No transvaginal needed per Katherine DUBOSE. BIOMETRY PRESENTATION: Vertex BPD: 8.1 cm 29 weeks / 3 days HC: 30.1 cm 33 weeks / 2 days AC: 31.3 cm 35 weeks / 2 days FL: 6.7 cm 34 weeks / 4 days ESTIMATED WEIGHT IN GRAMS: 2459 grams ESTIMATED WEIGHT IN LBS/OZ: 5 lbs. 7 oz. WEIGHT PERCENTAGE BASED ON ESTABLISHED DATES: 7.9% HC/AC: 0.96 FL/AC: 21.4 HEART RATE: 113 bpm Preliminary results given to Katherine DUBOSE. IMPRESSION: Single intrauterine corresponding to ultrasound age 33 weeks 4 days with estimated date of delivery 08/10/2021, additional findings above him a limited survey
[2021-06-26 14:12] VITALS: BP 109/58; PULSE 61; RESP 15; TEMP 96.8
--- NOTE | 2021-07-12 08:49 | P.MSEPDOC ---
Presenting Problems - Arrival Data Date of Arrival on Unit: 06/26/21 Time of Arrival on Unit: 11:31 Mode of Transport: Ambulatory - Complaint OB-Reason for Admission/Chief Complaint: NST Medical History - Information : 4 Para: 1 Term: 1 : 0 Abortions: Spontaneous or Elective: 2 Number of Living Children: 1 - Gestational Age Gestational Age by ELLA (wks/days): 37 Weeks and 0 Days Review of Systems - Review of Systems Constitutional: No problems Breast: No problems ENT: No problems Cardiovascular: No problems Respiratory: No problems Gastrointestinal: No problems Genitourinary: No problems Musculoskeletal: No problems Neurological: No problems Skin: No problems Vital Signs - Temperature Temperature: 96.8 F Temperature Source: Temporal Artery Scan - Pulse Brachial Pulse Rate: 61 Pulse Assessment Method: Automatic Cuff - Respirations Respiratory Rate: 15 Oxygen Delivery Method: Room Air O2 Sat by Pulse Oximetry: 98 - Blood Pressure Right Arm Blood Pressure: 109/58 Blood Pressure Mean: 75 Blood Pressure Source: Automatic Cuff Medical Screen Scoring - Uterine Contractions Frequency From (mins): 2 Frequency To (mins): 4 Duration From (seconds): 40 Duration To (seconds): 60 Intensity: Mild - Assessment - Baby A Baseline FHR: 120 Heart Rate - NICHD Category: Category I (Normal) NST: Reactive Physician Notification - Physician Notified Physician Notified Date: 06/26/21 Physician Notified Time: 13:00 Physician: Dustin Queen Order Received: Yes - Notification Comment Comment: admit pt for induction of labor in the am. Pt may go home to get her bag packed and will return shortly. Maternal Triage Index - Maternal Triage Index Presenting for scheduled procedure w/no complaint: Yes - Scheduled/Requesting Priority 5 Scheduled/Requesting Priority 5: Yes Criteria Met for Priority 5: yes, pt is being admitted for induction Disposition - Disposition OB Disposition: Discharge to home, Written follow up instructions reviewed Discharge Date: 06/26/21 Discharge Time: 13:20 I agree with the RN Medical Screening Exam: Yes Case reviewed; plan agreed upon as documented in EMR&OBIX.: Yes Diagnosis: RELATED CONDITIONS, UNSPECIFIED, THIRD TRIMESTER
== END 2021-06-26 13:20 | disposition home or self-care (01) ==
LOC: FBPOP 11:28
PROVIDERS: ATTEND Obstetrics & Gynecology
DX: O00.01 Abdominal pregnancy with intrauterine pregnancy (principal); Z3A.33 33 weeks gestation of pregnancy
CPT/HCPCS: 59025; 76805

== ENCOUNTER 2021-06-26 16:15 | Inpatient (IN) | payer OTHER ==
[2021-06-26] MEDS ORDERED: OXYTOCIN 10 UNIT/ML 1 ML VIAL IM PRN (16:30)
[2021-06-26] MEDS ORDERED: OXYTOCIN 30 UNITS/500 ML NS 30 UNIT in SALINE 1 500ML.BAG IV SCH (16:30)
[2021-06-26] MEDS ORDERED: LIDOCAINE 0.5% (PF) 5 MG/ML (50 ML SDV) SQ PRN (16:30)
[2021-06-26] MEDS ORDERED: TERBUTALINE 1 MG/ML VIAL SQ PRN (16:30)
[2021-06-26] MEDS ORDERED: CARBOPROST TROMETHAMINE 250 MCG/ML 1 ML AMP IM PRN (16:30)
[2021-06-26] MEDS ORDERED: METHYLERGONOVINE 0.2 MG/ML 1 ML AMP IM PRN (16:30)
--- NOTE | 2021-06-26 18:31 | HP ---
HISTORY AND PHYSICAL PRINCIPAL DIAGNOSIS: Interim at term, IUGR. HISTORY: The patient is a 26-year-old, G4, P1, at 37 weeks gestation who arrives to my office for her scheduled obstetrical visit. I did not see her last week, but on seeing her today her abdomen appeared smaller than it had been in the last couple weeks and she was measuring about 33-34 week size in the office. She was sent for nonstress test and ultrasound for RAE and EFW. Ultrasound shows an RAE of 10, but her estimated weight was in the 7th percentile. Reviewing her chart, I saw that she had a 40th percentile ultrasound approximately 32 weeks. Unclear why there was a traumatic drop- off in weight, but as a precaution, she is being induced as she is term for IUGR. Risks/benefits/alternatives were reviewed with the patient in detail and we will plan to do the induction starting in the morning so she can receive antibiotics. We will do nonstress test tonight as a precaution. She was dilated to 3 cm, 80% effaced, -2 station in the office today. She is having some irregular contractions at this time. Her course was generally unremarkable up until today. She is otherwise feeling well. All the questions were answered for her at this time. LABS: Pertinent labs include normal quadruple screen, A positive blood type, Rh negative, rubella was immune. RPR was negative and HIV was negative. Group B strep is pending. PHYSICAL EXAM: Vital signs stable, afebrile. Heart regular. Lungs clear. Extremities are without pain. Abdomen is soft and nontender. Positive bowel sounds noted. Gravid uterus is noted. Nonstress test earlier today was reactive. ASSESSMENT: Intrauterine at 37 weeks with IUGR. PLAN: Induction of labor in a.m. with GBS prophylaxis. MMODL / IJN: [id number] /
[2021-06-27] MEDS: LACTATED RINGERS 1,000 ML IV SCH ×4 (00:19→17:01)
[2021-06-27] MEDS: CLINDAMYCIN 900 MG in DEXTROSE 5% IN WATER 50 ML IVPB SCH ×4 (00:19→08:07)
[2021-06-27 01:01] LABS: Basophils # (A) 0.1 k/uL (0-0.2); Basophils % (A) 0 %; Eosinophils # (A) 0.1 k/uL (0-0.7); Eosinophils % (A) 1 %; HCT 30.2 % (34.0-46.0); HGB 10.4 gm/dL (11.4-16.0); Lymphocytes # (A) 2.3 k/uL (1.0-4.8); Lymphocytes % (A) 18 %; MCHC 34.4 g/dL (31.0-37.0); MCV 90.2 fL (80.0-100.0); Mean Platelet Volume 7.9; Monocytes # (A) 0.9 k/uL (0-1.0); Monocytes % (A) 8 %; Neutrophils # (A) 8.7 k/uL (1.3-7.7); Neutrophils % (A) 71 %; Platelet Count 241 k/uL (150-450); RBC 3.34 m/uL (3.80-5.40); WBC 12.3 k/uL (3.8-10.6)
[2021-06-27] MEDS ORDERED: ONDANSETRON 4 MG/2 ML VIAL IVP STA (09:35)
--- NOTE | 2021-06-27 12:06 | P.HPOB ---
History of Present Illness H&P Date: 06/27/21 Chief Complaint: IUGR 26-year-old presents at 37 weeks and 1 day for induction of labor. She came to the office yesterday and was found to have growth restriction and her baby. At 32 weeks and was 35th percentile and yesterday was 7 percentile. Through assured decision making Yahir Queen and the patient came to the conclusion to induce labor. Her cervix is 2 cm dilated, 70% effaced, -2 station. She is not fabiano. heart tones 1:30 with moderate variability and reactive. Review of Systems All systems: negative Constitutional: Denies chills, Denies fever Eyes: denies blurred vision, denies pain Ears, nose, mouth and throat: Denies headache, Denies sore throat Cardiovascular: Denies chest pain, Denies shortness of breath Respiratory: Denies cough Gastrointestinal: Denies abdominal pain, Denies diarrhea, Denies nausea, Denies vomiting Genitourinary: Denies dysuria, Denies hematuria Musculoskeletal: Denies myalgias Integumentary: Denies pruritus, Denies rash Neurological: Denies numbness, Denies weakness Psychiatric: Denies anxiety, Denies depression Endocrine: Denies fatigue, Denies weight change Past Medical History Past Medical History: No Reported History Additional Past Medical History / Comment(s): KIDNEY INFECTION, NAUSEA, stomach ulcers History of Any Multi-Drug Resistant Organisms: None Reported Past Surgical History: Cholecystectomy Additional Past Surgical History / Comment(s): Past Anesthesia/Blood Transfusion Reactions: No Reported Reaction Past Psychological History: Anxiety, Panic Disorder Smoking Status: Former smoker Past Alcohol Use History: Occasional Past Drug Use History: None Reported, Marijuana - Past Family History Mother Family Medical History: Cancer Additional Family Medical History / Comment(s): LUNG Medications and Allergies Home Medications Medication Instructions Recorded Confirmed Type Metoclopramide [Reglan] 10 mg PO TID PRN #15 tab 01/08/21 Rx Pedi Multivit No.25/Folic Acid 2 tab PO DAILY 01/08/21 01/08/21 History [Flintstones Multivit Chew Tab] Ferrous Sulfate [Iron] 325 mg PO 06/26/21 History Allergies Allergy/AdvReac Type Severity Reaction Status Date / Time acetaminophen Allergy Rash/Hives Verified 01/08/21 16:19 Penicillins Allergy Rash/Hives Verified 01/08/21 16:19 hydrocodone bitartrate AdvReac Nausea & Verified 01/08/21 16:19 [From Vicodin] Vomiting Exam Osteopathic Statement: *. No significant issues noted on an osteopathic struc tural exam other than those noted in the History and Physical/Consult. Vital Signs Temp Pulse Resp BP Pulse Ox 06/26/21 16:50 96.4 F L 75 16 112/54 99 Intake and Output 06/26/21 06/27/21 06/27/21 22:59 06:59 14:59 Output Total 2 Balance -2 Output: Emesis 2 Other: # Voids 2 4 Weight 63.957 kg Heart: Regular rate and rhythm Lungs: Clear to auscultation bilaterally Abdomen: Soft, nontender Extremities: Negative Homans sign Results Result Diagrams: 06/27/21 00:25 Abnormal Lab Results - Last 24 Hours (Table) 06/27/21 Range/Units 00:25 WBC 12.3 H (3.8-10.6) k/uL RBC 3.34 L (3.80-5.40) m/uL Hgb 10.4 L (11.4-16.0) gm/dL Hct 30.2 L (34.0-46.0) % Neutrophils # 8.7 H (1.3-7.7) k/uL Assessment and Plan (1) Intrauterine growth restriction (IUGR) affecting care of mother Current Visit: Yes Status: Acute Code(s): O36.5990 - MATERN CARE FOR OTH OR SUSP POOR FETL GRTH, UNSP TRI, UNSP SNOMED Code(s): 479293591 Plan: 1. Induction of labor with amniotomy and Pitocin 2. Anticipate normal vaginal delivery
[2021-06-27] MEDS ORDERED: HYDROCORTISONE 2.5% RECTAL CREAM 30 GM TUBE RECTAL PRN (16:06)
[2021-06-27] MEDS ORDERED: diphenhydrAMINE 25 MG CAP PO PRN (16:06)
[2021-06-27] MEDS ORDERED: BENZOCAINE/MENTHOL SPRAY 1 GM/SPRAY AEROSOL TOPICAL PRN (16:06)
[2021-06-27] MEDS ORDERED: SIMETHICONE 80 MG CHEWABLE PO PRN (16:06)
[2021-06-27] MEDS ORDERED: ZOLPIDEM 5 MG TAB PO PRN (16:06)
[2021-06-27] MEDS ORDERED: diphenhydrAMINE 50 MG CAP PO PRN (16:06)
[2021-06-27] MEDS ORDERED: diphenhydrAMINE 50 MG/ML 1 ML VIAL IVP PRN ×2 (16:06)
[2021-06-27] MEDS ORDERED: LANOLIN CREAM 5 GM TUBE TOPICAL PRN (16:06)
[2021-06-27] MEDS ORDERED: OXYTOCIN 30 UNITS/500 ML NS 30 UNIT in SALINE 1 500ML.BAG IV SCH (16:15)
[2021-06-27] MEDS: IBUPROFEN 600 MG TAB PO PRN (17:07)
[2021-06-27] MEDS ORDERED: ROPIVACAINE 100 MG, fentaNYL (PF). 200 MCG in SODIUM CHLORIDE 0.9% 76 ML EPIDURAL ONE (20:29)
[2021-06-27] MEDS: SENNOSIDES-DOCUSATE SODIUM 1 EACH TAB PO SCH (21:09)
[2021-06-28] MEDS: IBUPROFEN 600 MG TAB PO PRN ×3 (01:51→21:35)
[2021-06-28 07:52] LABS: Basophils # (A) 0.1 k/uL (0-0.2); Basophils % (A) 1 %; Eosinophils # (A) 0.1 k/uL (0-0.7); Eosinophils % (A) 1 %; HCT 28.7 % (34.0-46.0); HGB 9.7 gm/dL (11.4-16.0); Lymphocytes # (A) 1.8 k/uL (1.0-4.8); Lymphocytes % (A) 20 %; MCH 30.6 pg (25.0-35.0); MCHC 33.9 g/dL (31.0-37.0); MCV 90.4 fL (80.0-100.0); Mean Platelet Volume 8.4; Monocytes # (A) 0.5 k/uL (0-1.0); Monocytes % (A) 6 %; Neutrophils # (A) 6.4 k/uL (1.3-7.7); Neutrophils % (A) 71 %; Platelet Count 212 k/uL (150-450); RBC 3.18 m/uL (3.80-5.40); WBC 8.9 k/uL (3.8-10.6)
[2021-06-28] MEDS: SENNOSIDES-DOCUSATE SODIUM 1 EACH TAB PO SCH ×2 (08:55→21:35)
--- NOTE | 2021-06-28 11:05 | P.PROBDLV ---
Vaginal Delivery Note - . Vaginal Delivery Note: 26-year-old presents at 37 weeks and 1 day for induction of labor. She came to the office yesterday and was found to have growth restriction and her baby. At 32 weeks and was 35th percentile and yesterday was 7 percentile. Through shared decision making with Dr. Queen and the patient, they came to the conclusion to induce labor. Her cervix was 2 cm dilated, 70% effaced, -2 station. She was not fabiano. heart tones 130 with moderate variability and reactive. Clindamycin was started for GBS prophylaxis. Pitocin was started. Amniotomy performed at 9:32 AM and clear fluid noted. She was uncomfortable she did get an epidural. Her cervix was completely dilated at 1552. She pushed, delivered a viable male over intact perineum under epidural anesthesia at 1557. Head delivered OA, anterior shoulder delivered gentle downward guidance for by posterior shoulder and rest of body. Nose and mouth bulb suctioned, cord cut, placed mother's abdomen. Apgars 9, 10, weight 5 lbs. 14 oz. Placenta delivered spontaneously, intact with three-vessel cord at 1559. Vagina, cervix, perineum inspected. No lacerations noted. Maternal blood loss 51 mL. Mother and baby in stable condition.
--- NOTE | 2021-06-28 11:06 | P.PNOBGVD ---
Subjective - Subjective Principal diagnosis: Status post total vaginal delivery day #1 Interval history: Patient seen and examined. Denies nausea, vomiting, chest pain, shortness of breath or any calf pain. Patient reports: Reports appetite normal, Reports voiding normally, Reports pain well controlled, Reports ambulating normally : doing well Objective - Latest Vital Signs Latest vital signs: Vital Signs Temp Pulse Resp BP Pulse Ox 06/28/21 08:00 63 15 96/45 100 06/28/21 04:12 98.6 F 48 L 14 97/63 06/28/21 00:00 98.5 F 59 L 14 109/63 06/27/21 20:00 97.7 F 56 L 14 128/75 100 06/27/21 18:04 97.0 F L 57 L 15 100/57 06/27/21 17:34 96.9 F L 47 L 15 101/56 06/27/21 17:04 50 L 15 102/56 06/27/21 16:49 96.7 F L 58 L 15 107/57 06/27/21 16:34 72 15 99/54 06/27/21 16:19 96.6 F L 64 15 101/51 06/27/21 16:04 97.0 F L 96 16 114/55 Intake and Output 06/27/21 06/28/21 06/28/21 22:59 06:59 14:59 Intake Total 177.25 Output Total 50 Balance 127.25 Intake: Intake, IV Titration 177.25 Amount Oxytocin 30 Units/500 ml 177.25 Ns 30 unit In Saline 1 500ml.bag @ Per Protocol IV .Q0M [facility] Rx#:[id number] Output: Estimated Blood Loss 50 Other: # Voids 1 2 1 - Exam Lungs: bilateral: normal Chest: Normal S1, Normal S2 Extremities: Present: normal Abdomen: Present: normal appearance, soft Uterus: Present: normal, firm - Labs Labs: Abnormal Lab Results - Last 24 Hours (Table) 06/28/21 Range/Units 07:34 RBC 3.18 L (3.80-5.40) m/uL Hgb 9.7 L (11.4-16.0) gm/dL Hct 28.7 L (34.0-46.0) % Assessment and Plan (1) Intrauterine growth restriction (IUGR) affecting care of mother Current Visit: Yes Status: Resolved Code(s): O36.5990 - MATERN CARE FOR OTH OR SUSP POOR FETL GRTH, UNSP TRI, UNSP SNOMED Code(s): 476616200 (2) Normal spontaneous vaginal delivery Current Visit: No Status: Acute Code(s): O80 - ENCOUNTER FOR FULL-TERM UNCOMPLICATED DELIVERY SNOMED Code(s): 90490622 Plan: 1. Continue care
[2021-06-29 08:23] VITALS: BP 103/67; PULSE 51; RESP 16; TEMP 98.2
--- NOTE | 2021-06-29 10:41 | P.DS ---
Providers Date of admission: 06/26/21 16:15 Expected date of discharge: 06/29/21 Attending physician: Dustin Queen Primary care physician: Stated None Hospital Course: Patient is doing very well this morning. She is ambulating, voiding and tolerating her diet. She is day 2. We'll plan discharge home today. Vital signs are stable and afebrile. Heart regular, lungs clear, extremities without pain. Abdomen soft, uterus is firm and lochia is reported be light. Assessment day 2. Plan discharged home follow me in 6 weeks. Patient Condition at Discharge: Good Plan - Discharge Summary New Discharge Prescriptions: New Ibuprofen [Motrin] 600 mg PO Q6HR PRN #30 tab PRN Reason: Mild Pain (Scale 1 To 3) No Action Ferrous Sulfate [Iron] 325 mg PO Pedi Multivit No.25/Folic Acid [Flintstones Multivit Chew Tab] 2 tab PO DAILY Metoclopramide [Reglan] 10 mg PO TID PRN #15 tab PRN Reason: GERD Discharge Medication List Metoclopramide [Reglan] 10 mg PO TID PRN #15 tab 01/08/21 [Rx] Pedi Multivit No.25/Folic Acid [Flintstones Multivit Chew Tab] 2 tab PO DAILY 01/08/21 [History] Ferrous Sulfate [Iron] 325 mg PO 06/26/21 [History] Ibuprofen [Motrin] 600 mg PO Q6HR PRN #30 tab 06/28/21 [Rx] Follow up Appointment(s)/Referral(s): Dustin Queen DO [Doctor of Osteopathic Medicine] - 6 Weeks Activity/Diet/Wound Care/Special Instructions: Heavy lifting, limit stairs and driving, and pelvic rest. If any high temperatures, heavy bleeding, or severe pain call my office Discharge Disposition: HOME SELF-CARE
[2021-06-29] MEDS: IBUPROFEN 600 MG TAB PO PRN ×2 (10:58→16:14)
[2021-06-29] MEDS: SENNOSIDES-DOCUSATE SODIUM 1 EACH TAB PO SCH (10:58)
== END 2021-06-29 16:30 | disposition home or self-care (01) | DRG 807 ==
LOC: 4FBP 16:15
PROVIDERS: ADMIT Obstetrics & Gynecology; ATTEND Obstetrics & Gynecology
PROC: 10E0XZZ Delivery of Products of Conception, External Approach (ICD-10-PCS; principal; 2021-06-27)
PROC: 10907ZC Drainage of Amniotic Fluid, Therapeutic from Products of Conception, Via Natural or Artificial Opening (ICD-10-PCS; 2021-06-27)
PROC: 3E033VJ Introduction of Other Hormone into Peripheral Vein, Percutaneous Approach (ICD-10-PCS; 2021-06-27)
DX: O36.5930 Maternal care for other known or suspected poor fetal growth, third trimester, not applicable or unspecified (principal); Z37.0 Single live birth; Z3A.37 37 weeks gestation of pregnancy; Z87.11 Personal history of peptic ulcer disease; Z87.891 Personal history of nicotine dependence; O99.344 Other mental disorders complicating childbirth; F41.0 Panic disorder [episodic paroxysmal anxiety]
CPT/HCPCS: 85025; 86850; 86900; 86901; 87635; 88307

== ENCOUNTER 2021-09-15 06:16 | Day surgery (SDC) | payer OTHER ==
[2021-09-14 11:01] VITALS: BMI 21.9
--- NOTE | 2021-09-14 16:52 | P.HPOB ---
History of Present Illness H&P Date: 09/14/21 Chief Complaint: Family planning Patient is a 26-year-old female who has completed her family planning and desires permanent sterilization. Risks/benefits/alternatives to this procedure were reviewed with the patient in detail and all questions were answered for her prior to proceeding to the operative room. She is aware this is designed to be a permanent procedure and is not designed to be reversed. She understands that there are multiple other alternatives could be used for family planning and that there is a small failure rate of approximately 4 per 1000. All other questions are answered for her. She is aware of risks of bleeding and infection, damage to bladder or bowel, vascular injuries, nerve injuries, even potentially . Past Medical History Past Medical History: No Reported History Additional Past Medical History / Comment(s): hx KIDNEY INFECTION,stomach ulcers-healed History of Any Multi-Drug Resistant Organisms: None Reported Past Surgical History: Cholecystectomy Additional Past Surgical History / Comment(s): Past Anesthesia/Blood Transfusion Reactions: No Reported Reaction Smoking Status: Former smoker - Past Family History Mother Family Medical History: Cancer Additional Family Medical History / Comment(s): LUNG Medications and Allergies Home Medications Medication Instructions Recorded Confirmed Type No Known Home Medications 09/14/21 09/14/21 History Allergies Allergy/AdvReac Type Severity Reaction Status Date / Time acetaminophen Allergy Rash/Hives Verified 09/14/21 10:55 Penicillins Allergy Rash/Hives Verified 09/14/21 10:55 hydrocodone bitartrate AdvReac Nausea & Verified 09/14/21 10:55 [From Vicodin] Vomiting Exam Osteopathic Statement: *. No significant issues noted on an osteopathic structural exam other than those noted in the History and Physical/Consult. Intake and Output 09/14/21 09/14/21 09/14/21 06:59 14:59 22:59 Other: Weight 61.689 kg - OBG Physical Exam Breast: both: normal (no masses) Abdomen: bowel sounds normal, no diffuse tenderness, no bruit present, no guarding noted, no hepatomegaly, no splenomegaly, no mass Vulva: both: normal Vagina: normal moisture, no discharge Cervix: no lesion, no discharge Uterus: normal size, normal contour Adnexa: both: normal Anus/Rectum: normal perianal skin, no rectal mass, no hemorrhoids, heme negative
[~2021-09-15 06:16] MED LIST: .fentaNYL (PF) 50 MCG/ML 2 ML AMP IV PRN; ONDANSETRON 4 MG/2 ML VIAL IVP ONE; Pre Op ABX Message 1 EACH MISC MISCELLANE ONE
[2021-09-15] MEDS ORDERED: LIDOCAINE 1% (10MG/ML) FOR IV START INTRADERMA ONE (07:07)
[2021-09-15] MEDS: LACTATED RINGERS 1,000 ML IV SCH ×2 (07:10→07:34)
[2021-09-15 07:14] VITALS: RESP 16
[2021-09-15 07:20] LABS: Basophils # (A) 0.1 k/uL (0-0.2); Basophils % (A) 1 %; Eosinophils # (A) 0.2 k/uL (0-0.7); Eosinophils % (A) 3 %; HCT 34.1 % (34.0-46.0); HGB 12.1 gm/dL (11.4-16.0); Lymphocytes # (A) 2.4 k/uL (1.0-4.8); Lymphocytes % (A) 32 %; MCH 30.2 pg (25.0-35.0); MCHC 35.4 g/dL (31.0-37.0); MCV 85.2 fL (80.0-100.0); Mean Platelet Volume 6.9; Monocytes # (A) 0.5 k/uL (0-1.0); Monocytes % (A) 7 %; Neutrophils # (A) 4.3 k/uL (1.3-7.7); Neutrophils % (A) 57 %; Platelet Count 273 k/uL (150-450); RDW 12.6 % (11.5-15.5); WBC 7.6 k/uL (3.8-10.6)
[2021-09-15] MEDS ORDERED: PROPOFOL 10 MG/ML 20 ML VIAL IV ONE (07:32)
[2021-09-15] MEDS ORDERED: NEOSTIGMINE 1 MG/ML 10 ML VIAL ONE (07:32)
[2021-09-15] MEDS ORDERED: SUCCINYLCHOLINE CHLORIDE 100 MG/5 ML SYR IV ONE (07:32)
[2021-09-15] MEDS ORDERED: LIDOCAINE 1% INJ 10MG/ML (20 ML MDV) ONE (07:32)
[2021-09-15] MEDS ORDERED: GLYCOPYRROLATE 0.2 MG/ML 2 ML VIAL ONE (07:32)
[2021-09-15] MEDS ORDERED: KETOROLAC 15 MG/ML 1 ML VIAL ONE (07:32)
[2021-09-15] MEDS ORDERED: .fentaNYL (PF) 50 MCG/ML 2 ML AMP ONE (07:32)
[2021-09-15] MEDS ORDERED: ROCURONIUM 10 MG/ML (5 ML VIAL) IV ONE (07:32)
[2021-09-15] MEDS ORDERED: MIDAZOLAM 2 MG/2 ML VIAL ONE (07:32)
[2021-09-15] MEDS ORDERED: BUPIVACAINE (PF) 0.25% 30 ML VIAL SQ ONE (07:52)
--- NOTE | 2021-09-15 08:13 | P.OP ---
Date of Procedure: 09/15/21 Preoperative Diagnosis: Family planning Postoperative Diagnosis: Same Procedure(s) Performed: Laparoscopic tubal occlusion with Filshie clips Anesthesia: MERISSA Surgeon: Dustin Queen Estimated Blood Loss (ml): 3 IV fluids (ml): 400 Urine output (ml): 100 Pathology: none sent Condition: stable Disposition: same day Operative Findings: Normal female pelvic anatomy Description of Procedure: Patient was taken to the operating suite where a general anesthetic was found be adequate. She was prepped and draped in the normal sterile fashion and placed in the dorsal lithotomy position. Initially a speculum was inserted in the vagina and the anterior lip of the cervix identified and grasped with a single- tooth tenaculum. It was then sounded to 7 cm and a manipulator was inserted then inserted without difficulty. Other instruments were then removed and a red rubber catheter was used to drain the bladder of urine. This was also removed. Gloves were changed and attention was turned to the abdominal portion procedure where 2 mL of quarter percent Marcaine was injected periumbilically. Through this injected anesthetic a 5 mm skin incision was made and through this incision, under direct visualization with an optical trocar and sleeve, the camera was inserted. Once peritoneal placement was assured gas allowed to fully insufflate the abdomen and patient was then placed in steep Trendelenburg position. A second port and sleeve were then inserted through an 8 mm skin incision 3 cm above the pubic sepsis in the midline. Port and sleeve were inserted under direct visualization and then observations the pelvis were noted. No gross pathology was noted. Uterus was elevated and tipped to the left side right fallopian tube was identified and a Filshie clip was applied 2-3 cm from uterine cornu. Similar fashion left clip is placed. No bleeding is noted in the mesosalpinx therefore incidents removed and gas was allowed to expel from the abdomen. 5 deep breaths were provided during this process. Ports were removed and 4-0 Vicryl was then used to close incision subcuticularly. Another 7 mL of quarter percent Marcaine was then injected around these incisions. Incidents was then removed from the vagina. Sponge, lap, needle counts were all correct 2. Patient was then taken to the recovery room in stable and satisfactory condition. Plan - Discharge Summary Discharge Rx Participant: No New Discharge Prescriptions: New Ibuprofen [Motrin] 600 mg PO Q6HR PRN #30 tab PRN Reason: Pain HYDROmorphone [Dilaudid] 2 mg PO Q6H PRN 3 Days #12 tab PRN Reason: Pain Discharge Medication List HYDROmorphone [Dilaudid] 2 mg PO Q6H PRN 3 Days #12 tab 09/15/21 [Rx] Ibuprofen [Motrin] 600 mg PO Q6HR PRN #30 tab 09/15/21 [Rx] Follow up Appointment(s)/Referral(s): Dustin Queen DO [Doctor of Osteopathic Medicine] - 1 Week Activity/Diet/Wound Care/Special Instructions: No heavy lifting, limit stairs and driving, pelvic rest. If any high temperatures, heavy bleeding, or severe pain call my office Discharge Disposition: HOME SELF-CARE
[2021-09-15] MEDS ORDERED: HYDROmorphone 0.5 MG/0.5 ML SYRINGE IVP ONE ×2 (08:21→08:33)
[2021-09-15 08:26] VITALS: TEMP 97.9
[2021-09-15] MEDS ORDERED: HYDROmorphone 2 MG TAB PO STA (09:38)
[2021-09-15 10:23] VITALS: PULSE 56
[2021-09-15 10:38] VITALS: BP 111/70
== END 2021-09-15 10:57 | disposition home or self-care (01) ==
LOC: OR 06:16
PROVIDERS: ATTEND Obstetrics & Gynecology
DX: Z30.2 Encounter for sterilization (principal); Z87.81 Personal history of (healed) traumatic fracture; Z88.6 Allergy status to analgesic agent; Z88.5 Allergy status to narcotic agent; Z88.0 Allergy status to penicillin
CPT/HCPCS: 81025; 85025; 58671; J2250; J2710; J2405; J2001; J3010; J1885; J0330; J2704; J1170

== ENCOUNTER → 2024-01-27 | Outpatient (CLI) | payer OTHER ==
--- NOTE | 2024-01-27 08:47 | USB ---
Reason for Exam: Clinical finding. Technique: Method: Targeted. Findings: The area of palpable concern of the right breast, the axilla of the right breast and the retroareolar of the right breast were scanned. No solid or cystic masses are identified.. Overall Assessment: Negative, BI-RAD 1 Management: Diagnostic Mammogram of the right breast. A clinical breast exam by your physician is recommended on an annual basis and results should be correlated with mammographic findings. This exam should not preclude additional follow-up of suspicious palpable abnormalities. Results were given to the patient verbally at the time of exam. Electronically signed and approved by: Dandy Garcia D.O. Radiologis
--- NOTE | 2024-01-27 08:59 | MM ---
Reason for Exam: Clinical finding. Baseline mammogram. Patient History: Menarche at age 9. First Full-Term at age 24. Premenopausal. Maternal grandmother had breast cancer under age 50. Maternal aunt had breast cancer under age 50. Maternal aunt had breast cancer under age 50. Maternal aunt had breast cancer under age 50. Last menstrual period: 01/07/2024 Prior Study Comparison: Patient's first Mammogram. Tissue Density: Right: The breasts are heterogeneously dense, which may obscure small masses. Findings: Analyzed By CAD. No suspicious changes upper outer quadrant at the region of the patient's palpable area. A discrete palpable lesion was not identified by the patient at this time and no marker was utilized. There are for regional punctate calcifications within the right breast. No suspicious group of calcifications. No suspicious groups of microcalcifications, spiculated or lobular masses, architectural distortion or other secondary signs of malignancy are mammographically apparent. Overall Assessment: Benign, BI-RAD 2 Management: Screening Mammogram of both breasts at age 40. A negative mammogram report should not preclude additional follow up of suspicious palpable abnormalities. Patient should continue monthly self breast exam. A clinical breast exam by your physician is recommended on an annual basis and results should be correlated with mammographic findings. Note on Chely scores and lifetime risk: 1. A Chely score greater than 3% is considered moderate risk. If this is the case, consider specialist referral to assess eligibility for a risk reducing agent. 2. If overall lifetime risk for the development of breast cancer is 20% or higher, the patient may qualify for future screening with alternating mammogram and breast MRI. Electronically signed and approved by: Dandy Garcia D.O. Radiologis
== END | disposition home or self-care (01) ==
LOC: RADMAMWWP 08:17
PROVIDERS: ATTEND Family Medicine
DX: N63.11 Unspecified lump in the right breast, upper outer quadrant (principal); Z80.3 Family history of malignant neoplasm of breast
CPT/HCPCS: 77065; 76642; G0279; 77061